=== PATIENT | female | born 1970 | race Caucasian/White ===

== ENCOUNTER 2020-07-31 09:49 | Outpatient (REF) | payer MEDICARE, MEDICAID, SELFPAY ==
--- NOTE | 2020-07-31 10:09 | XR_ITS ---
EXAMINATION: X-RAY BILATERAL KNEES CLINICAL INFORMATION: Pain COMPARISON: None TECHNIQUE: AP bilateral knees one view. Left knee 2 views. Right knee 2 views. FINDINGS: Left knee: Normal alignment. Joint spaces are maintained. No fracture or dislocation. No effusion. Right knee: Normal alignment. Medial and lateral compartment joint spaces are maintained. Marginal patellar spurring, with the question mild lateral compartment joint space narrowing. No acute fracture or dislocation. Small suprapatellar joint fluid. Dystrophic calcifications in the soft tissue. XR/XR knee RT 2V IMPRESSION: Mild patellofemoral compartment arthritis right knee. Small suprapatellar joint fluid. No acute osseous abnormality. No significant osseous abnormality left knee.
--- NOTE | 2020-07-31 10:09 | XR_ITS ---
EXAMINATION: X-RAY BILATERAL KNEES CLINICAL INFORMATION: Pain COMPARISON: None TECHNIQUE: AP bilateral knees one view. Left knee 2 views. Right knee 2 views. FINDINGS: Left knee: Normal alignment. Joint spaces are maintained. No fracture or dislocation. No effusion. Right knee: Normal alignment. Medial and lateral compartment joint spaces are maintained. Marginal patellar spurring, with the question mild lateral compartment joint space narrowing. No acute fracture or dislocation. Small suprapatellar joint fluid. Dystrophic calcifications in the soft tissue. XR/XR knee LT 2V IMPRESSION: Mild patellofemoral compartment arthritis right knee. Small suprapatellar joint fluid. No acute osseous abnormality. No significant osseous abnormality left knee.
--- NOTE | 2020-07-31 10:09 | XR_ITS ---
EXAMINATION: X-RAY BILATERAL KNEES CLINICAL INFORMATION: Pain COMPARISON: None TECHNIQUE: AP bilateral knees one view. Left knee 2 views. Right knee 2 views. FINDINGS: Left knee: Normal alignment. Joint spaces are maintained. No fracture or dislocation. No effusion. Right knee: Normal alignment. Medial and lateral compartment joint spaces are maintained. Marginal patellar spurring, with the question mild lateral compartment joint space narrowing. No acute fracture or dislocation. Small suprapatellar joint fluid. Dystrophic calcifications in the soft tissue. XR/XR knee standing BI IMPRESSION: Mild patellofemoral compartment arthritis right knee. Small suprapatellar joint fluid. No acute osseous abnormality. No significant osseous abnormality left knee.
== END 2020-07-31 09:50 | disposition home or self-care (01) ==
LOC: HO.HOSX 09:49
PROVIDERS: PCP Internal Medicine; Visit Provider Physician Assistant
DX: M25.561 Pain in right knee (principal); M25.562 Pain in left knee; M22.2X1 Patellofemoral disorders, right knee; M22.2X2 Patellofemoral disorders, left knee
CPT/HCPCS: 73560; 73565; 99212

== ENCOUNTER 2020-08-05 12:14 | Outpatient (REF) | payer MEDICARE, MEDICAID, SELFPAY ==
[2020-08-05 13:11] LABS: MANUAL DIFF FLAG NO
[2020-08-05 13:23] LABS: Basophils Percent Auto 0.5 % (0-2); Eosinophils Absolute Auto 0.3 X10*3/uL (0.0-0.4); Hematocrit 34.3 % (37-47); Imm Gran Abs Auto 0.01 X10*3/uL (0.00-0.03); Imm Gran Pct Auto 0.2 % (0.0-0.4); Lymphocytes Absolute Auto 1.3 X10*3/uL (1.2-4.9); Lymphocytes Percent Auto 20.2 % (20-40); Mean Corpuscular HGB Conc 32.1 g/dl (31.0-35.0); Mean Corpuscular Hemoglobin 29.2 pg (27.0-33.0); Mean Platelet Volume 9.6 fL (9.4-12.3); Monocytes Absolute Auto 0.5 X10*3/uL (0.1-1.2); Monocytes Percent Auto 7.3 % (2-11); Neutrophils Absolute Auto 4.2 X10*3/uL (2.0-8.3); Neutrophils Percent Auto 66.8 % (45-73); Platelet Count 347 X10*3/uL (160-400); Red Blood Count 3.77 X10*6/uL (4.20-5.50); Red Cell Distribution Width 15.9 % (11.0-16.0); White Blood Count 6.2 X10*3/uL (4.8-10.8)
[2020-08-05 13:32] LABS: B Type Natriuretic Peptide 33 pg/mL (<100)
[2020-08-05 13:58] LABS: Estimated Average Glucose 114 mg/dL; Hemoglobin A1c % 5.6 %; Vitamin D 25-OH Total 25.3 ng/mL (>30)
[2020-08-05 14:02] LABS: Alanine Aminotransferase 19 U/L (0-31); Alkaline Phosphatase 55 U/L (39-117); Anion Gap 14 (12-20); Aspartate Amino Transferase 19 U/L (5-31); Bilirubin Total 0.4 mg/dL (0.0-1.0); Blood Urea Nitrogen 6 mg/dL (9-16); Calcium 8.5 mg/dL (8.4-10.2); Carbon Dioxide 26 mmol/L (22-29); Chloride 102 mmol/L (96-108); Cholesterol 144 mg/dL; Estimated Glomerular Filt Rate > 60; Glucose Fasting 96 mg/dL (60-99); HDL Cholesterol 42 mg/dL; LDL Cholesterol Calculated 74 mg/dl; Potassium 4.8 mmol/l (3.3-5.1); Sodium 137 mmol/L (135-145); Total Protein 6.6 g/dL (6.5-8.0); Triglycerides 142 mg/dL
[2020-08-05 14:35] LABS: Folate 6.7 ng/mL (> or = 4.0); Vitamin B12 229 pg/mL (200-900)
[2020-08-05 14:46] LABS: Erythrocyte Sedimentation Rate 13 MM/HR (0-20)
== END 2020-08-05 12:15 | disposition home or self-care (01) ==
LOC: HO.LAB 12:14
PROVIDERS: PCP Internal Medicine; Visit Provider Internal Medicine
DX: E78.5 Hyperlipidemia, unspecified (principal); R73.01 Impaired fasting glucose; I10 Essential (primary) hypertension; R74.8 Abnormal levels of other serum enzymes; R60.0 Localized edema; E53.8 Deficiency of other specified B group vitamins; J45.909 Unspecified asthma, uncomplicated; J21.9 Acute bronchiolitis, unspecified; F17.200 Nicotine dependence, unspecified, uncomplicated; E55.9 Vitamin D deficiency, unspecified
CPT/HCPCS: 36415; 80053; 80061; 82306; 82607; 82746; 83036; 83880; 85025; 85652

== ENCOUNTER → 2020-08-13 10:56 | Outpatient (BNVA) | payer MEDICARE, MEDICAID, SELFPAY | PROVIDERS: PCP Internal Medicine; Visit Provider Urology | DX: R39.15 Urgency of urination (principal); R32 Unspecified urinary incontinence | CPT/HCPCS: 99202; Q3014 ==

== ENCOUNTER 2020-09-04 22:05 | Emergency (ER) | payer MEDICARE, MEDICAID, SELFPAY ==
[2020-09-04 22:24] VITALS: BP 139/82; PULSE 77; RESP 16; TEMP 37.1; O2SAT 97; BMI 47.2
--- NOTE | 2020-09-04 22:33 | ED.LOWEXIN ---
HPI - Extremity Injury (Lower) General Chief Complaint: Extremity Injury, Lower Stated Complaint: Right foot pain Time Seen by Provider: 09/04/20 22:06 Source: patient Mode of arrival: ambulatory Limitations: no limitations History of Present Illness HPI Narrative: 50-year-old female with past medical history of obesity, bilateral lower extremity edema, GERD, osteoarthritis, hypertension, asthma, hyperlipidemia presents with 1 month of right heel pain with ulceration. States that she picks at her skin and that is how she got her ulcer, states that every time she walks she has a sharp piercing pain to the right heel. She does have multiple comorbidities for joint pain, and does occasionally take Percocet that are not prescribed to her. She does have bilateral lower extremity edema +4, this is her baseline and she does take a ?water pill? but she does not know the name of it. She does not describe this edema to be out of control, and states that this is her baseline. She does not report chest pain or pressure, palpitations, shortness of breath, fevers, chills, abdominal pain, abdominal distention, dysuria, hematuria, dizziness and or weakness. MD complaint: foot injury Onset (ago): month(s) (One) Type of Injury: unknown Place: home Severity: moderate Severity scale (1-10): 7 Relieving factors: nothing Exacerbating factors: weight bearing, movement and palpation Associated symptoms: able to partially bear weight Other symptoms: none Treatments prior to arrival: NSAIDS and other (Percocet) Related Data Home Medications Medication Instructions Recorded Confirmed albuterol sulfate 90 mcg/actuation 2 puff INHALATION QID 08/05/20 08/20/20 aerosol inhaler bupropion HCl 300 mg 24 hr tablet, 300 mg PO QAM 08/05/20 08/20/20 extended release cyanocobalamin (vitamin B-12) 1,000 mcg IM .Qmonth ml 08/05/20 08/20/20 1,000 mcg/mL injection solution cyclobenzaprine 10 mg tablet 10 mg PO TID 08/05/20 08/20/20 fexofenadine 180 mg tablet 180 mg PO DAILY 08/05/20 08/20/20 fluticasone propionate 220 1 puff INHALATION BID 08/05/20 08/20/20 mcg/actuation HFA aerosol inhaler gabapentin 600 mg tablet 600 mg PO BID 08/05/20 08/20/20 omeprazole 20 mg capsule,delayed 20 mg PO DAILY 08/05/20 08/20/20 release paroxetine HCl 10 mg tablet 10 mg PO DAILY 08/05/20 08/20/20 simvastatin 20 mg tablet 20 mg PO QPM 08/05/20 08/20/20 Previous Rx's Medication Instructions Recorded ibuprofen 800 mg tablet 800 mg PO TID PRN #270 tab 07/20/20 furosemide 20 mg tablet 20 mg PO DAILY #60 tab 07/30/20 mirtazapine 7.5 mg tablet 7.5 mg PO BEDTIME #90 tab 07/30/20 humidifiers #1 ea 08/05/20 mirtazapine 15 mg tablet 15 mg PO BEDTIME 30 Days #30 tab 08/05/20 simvastatin 20 mg tablet 20 mg PO BEDTIME 30 Days #30 tab 08/05/20 leg brace #1 ea 08/12/20 acetaminophen 325 mg capsule 650 mg PO Q6H PRN #300 cap 08/13/20 cyanocobalamin (vitamin B-12) 100 100 mcg PO DAILY #90 tab 08/13/20 mcg tablet oxybutynin chloride 10 mg 10 mg PO DAILY 60 Days #60 tab 08/13/20 tablet,extended release 24 hr leg brace #1 ea 08/27/20 lidocaine-prilocaine 2.5 %-2.5 % 0 - 3 g TOPICAL TID-QID #360 g 08/31/20 topical cream sennosides 8.6 mg tablet 17.2 mg PO BEDTIME PRN #60 tab 08/31/20 Allergies Allergy/AdvReac Type Severity Reaction Status Date / Time amlodipine Allergy Unknown unknown Verified 08/05/20 13:03 atorvastatin AdvReac Mild cannot Verified 08/05/20 13:03 smell or taste anything while on Rx lisinopril AdvReac Mild cough,hours Verified 08/05/20 13:03 eness Review of Systems Review of Systems: Constitutional: No Fever, No Chills ENT/Mouth: No Ear Pain, No Hoarseness, No sore throat Eyes: No Eye Pain, No Swelling, No Redness, No Foreign Body Cardiovascular: No Chest Pain, No SOB Respiratory: No Cough, No Dyspnea Gastrointestinal: No Nausea, No Vomiting, No Diarrhea, No abdominal Pain Genitourinary: No Dysuria, No Hematuria Musculoskeletal: positive right heel pain, No Myalgias, No Joint Swelling Skin: Positive ulceration to the right heel, No Skin lacerations, No rash Neuro: No Weakness, No Numbness, No Paresthesias, No Loss of Consciousness, No Dizziness, No Headache Psych: No Anxiety/Panic, No Depression Heme/Lymph: no easy bruising, no Lymphadenopathy Endocrine: No Polyuria, No Polydipsia Yes all other systems are reviewed and are negative [facility] Past Medical History Attestation statement: The following information was validated with the patient. Medical History Allergic rhinitis Anxiety Asthma Benign essential hypertension Bilateral lower extremity edema DDD (degenerative disc disease) Depression Elevated LFTs GERD without esophagitis Impaired fasting glucose Insomnia Lumbar degenerative disc disease Morbid obesity with BMI of 45.0-49.9, adult Osteoarthritis of multiple joints PTSD (post-traumatic stress disorder) Pure hypercholesterolemia Smoker Urinary incontinence Vitamin B12 deficiency Surgical History History of hip replacement, total Family History Family History Father Cancer Mother Medical history unknown Social History Social History Smoking Status: Current every day smoker Tobacco Type: Cigarette Packs Per Day: 0.5 Cigarettes Per Day: 10.0 Use of substances other than those prescribed or required for medical reasons: No Advance Directives: No Advance Directives Information Provided: Yes Physical Exam Vital Signs: Vital Signs: Last Vital Signs Temp 98.7 F 09/04/20 22:24 Pulse 77 09/04/20 22:24 Resp 16 09/04/20 22:24 BP 139/82 09/04/20 22:24 Pulse Ox 97 09/04/20 22:24 Body Mass Index 47.2 Appearance: Alert. Oriented X3. Moderate distress. Eyes: Pupils equal, round and reactive to light. ENT: Pharynx normal. Neck: Normal inspection. Neck supple. CVS: Normal heart rate and rhythm. Pulses normal. Respiratory: No respiratory distress. Breath sounds normal. Abdomen: Soft and nontender. Skin: Skin warm and dry. Normal skin color. Normal skin turgor. Extremities: Bilateral lower extremity edema +4, 0.5 by 0.3 mm ulceration to the right heel, no purulent drainage or erythema noted, tenderness noted to palpation to the right heel. Brisk capillary refill to bilateral lower extremities, pulses equal to all extremities. Neuro: No motor deficit. No sensory deficit. Course Course Course Narrative: 50-year-old female presents with right heel pain, has had this for approximately a month however has gotten worse or the past several days. She does have an ulceration, ulceration was caused by skin picking. She does not have any other wounds anywhere on her body, this wound has been there for approximately a month or more. There is no indication of cellulitis, we will order x-ray of the right foot and heel. As her pain management will give IM morphine and Toradol. We will update her Tdap vaccine. X-ray shows osteoarthritis, no indication of osteomyelitis. Patient was referred to Pain Management, we will not be giving her prescriptions for pain at home as she does use Percocets, Tylenol and Motrin. Patient verbalized understanding of and agrees to plan of care to discharge home. She is visibly dissatisfied with pain management suggestions. MDM - Extremity Injury (Lower) Medical Records Attestation: I reviewed the patient's medical records. Lab Data Attestation: I reviewed the patient's lab results. Imaging Data Right foot x-ray: Attestation: I personally reviewed and interpreted this imaging study as follows: Radiologist's impression: EXAMINATION: XR FOOT, RIGHT CLINICAL INFORMATION: heel pain with ulcer COMPARISON: 11/24/2019 TECHNIQUE: AP, lateral, and oblique views of the right foot. FINDINGS: Soft tissues are swollen at the hindfoot and ankle. As seen on the oblique view, there is a subtle lucency in the lateral subcutaneous fat only corresponds to the skin ulceration. No evidence of underlying osteomyelitis. There is mild multifocal osteoarthritis in the midfoot. Hallux valgus is present at the first MTP joint, relatively mild. Mild osteoarthritis is also present at the great toe interphalangeal joint and the first MTP joint. XR/XR foot RT min 3V IMPRESSION: Soft tissue ulceration at the level of the calcaneal tuberosity without radiographic evidence of underlying osteomyelitis. Multifocal osteoarthritis in the foot. Discharge Plan Discharge Clinical Impression: Inflammatory heel pain Qualifiers: Laterality: right Qualified Code(s): M79.671 - Pain in right foot Osteoarthritis Qualifiers: Osteoarthritis location: foot Osteoarthritis type: unspecified Laterality: right Qualified Code(s): M19.071 - Primary osteoarthritis, right ankle and foot Patient Disposition: Home, Self-Care Instructions: Osteoarthritis (ED), Arthralgia (ED), Metatarsalgia (DC) Additional Instructions: You were evaluated for heel pain. Please follow-up with Dr. De León painting technician. You do have osteoarthritis, as well as degenerative joint disease of multiple joints. Thank you for choosing this emergency department for evaluation. Please follow-up with primary care physician as needed. Return to the emergency department for any new, concerning, or worsening symptoms. Prescriptions: No Action ibuprofen 800 mg tablet 800 mg PO TID PRN (Reason: pain) Qty: 270 RF: 2 mirtazapine 7.5 mg tablet 7.5 mg PO BEDTIME Qty: 90 RF: 0 furosemide 20 mg tablet 20 mg PO DAILY Qty: 60 RF: 0 acetaminophen 325 mg capsule 650 mg PO Q6H PRN (Reason: fever or pain) Qty: 300 RF: 2 cyanocobalamin (vitamin B-12) 100 mcg tablet 100 mcg PO DAILY Qty: 90 RF: 2 (DME) Knee Support Brace Misc See Rx Instructions .MEDSUPPLY Qty: 1 RF: 0 sennosides [Senna Laxative] 8.6 mg tablet 17.2 mg PO BEDTIME PRN (Reason: constipation) Qty: 60 RF: 2 lidocaine-prilocaine 2.5-2.5 % cream 0 - 3 g topical TID-QID Qty: 360 RF: 2 omeprazole 20 mg capsule,delayed release(DR/EC) 20 mg PO DAILY RF: 0 Flovent HFA 220 mcg/actuation HFA aerosol inhaler 1 puff inhalation BID RF: 0 fexofenadine 180 mg tablet 180 mg PO DAILY RF: 0 albuterol sulfate [Ventolin HFA] 90 mcg/actuation HFA aerosol inhaler 2 puff inhalation QID RF: 0 gabapentin 600 mg tablet 600 mg PO BID RF: 0 (DME) humidifiers Misc See Rx Instructions .ROUTE .MEDSUPPLY Qty: 1 RF: 0 cyanocobalamin (vitamin B-12) 1,000 mcg/mL solution 1,000 mcg IM .Qmonth RF: 0 cyclobenzaprine 10 mg tablet 10 mg PO TID RF: 0 simvastatin 20 mg tablet 20 mg PO QPM RF: 0 paroxetine HCl 10 mg tablet 10 mg PO DAILY RF: 0 bupropion HCl 300 mg tablet extended release 24 hr 300 mg PO QAM RF: 0 simvastatin 20 mg tablet 20 mg PO BEDTIME 30 Days Qty: 30 RF: 3 mirtazapine 15 mg tablet 15 mg PO BEDTIME 30 Days Qty: 30 RF: 3 (DME) Knee Support Brace Misc See Rx Instructions .MEDSUPPLY Qty: 1 RF: 0 oxybutynin chloride 10 mg tablet extended release 24hr 10 mg PO DAILY 60 Days Qty: 60 RF: 0 Referrals: Ruben De León MD [Physician] - 2 days (Chronic joint pain, right heel pain)
[2020-09-04] MEDS: Morphine Sulfate 4 MG/ML CARTRIDGE IM (22:43)
[2020-09-04] MEDS: Ketorolac Tromethamine 60 MG/2 ML VIAL IM (22:48)
[2020-09-04 23:21] VITALS: BP 120/68; PULSE 93; RESP 16; O2SAT 95
== END 2020-09-05 00:06 | disposition home or self-care (01) ==
PROVIDERS: Emergency Provider Internal Medicine; PCP Internal Medicine
DX: M19.071 Primary osteoarthritis, right ankle and foot (principal); S90.811A Abrasion, right foot, initial encounter; M79.671 Pain in right foot; R60.0 Localized edema; F17.210 Nicotine dependence, cigarettes, uncomplicated; X58.XXXA Exposure to other specified factors, initial encounter; Y93.9 Activity, unspecified; Y92.9 Unspecified place or not applicable; Y99.9 Unspecified external cause status; Z23 Encounter for immunization; Z79.899 Other long term (current) drug therapy; Z71.6 Tobacco abuse counseling
CPT/HCPCS: 73630; 90471; 90715; 96372; 99284; J1885; J2270

== ENCOUNTER 2020-10-14 13:02 | Outpatient (REF) | payer OTHER, SELFPAY ==
--- NOTE | 2020-10-14 14:09 | XR_ITS ---
EXAMINATION: XR KNEE, RIGHT XR KNEE STANDING, BILATERAL XR KNEE, LEFT CLINICAL INFORMATION: Pain right knee. COMPARISON: None TECHNIQUE: AP bilateral knees standing. Two views each knee. FINDINGS: AP BILATERAL KNEE: There is mild loss of joint space in medial compartment of both knees slightly greater on the right knee with periarticular spurring. The lateral compartment joint space is maintained. No bony erosive changes, loose bodies or joint effusion seen. RIGHT KNEE: There is mild loss of patellofemoral compartment joint space with periarticular spurring. There is minimal joint effusion. No loose body seen. There are small calcifications in the subcutaneous soft tissue anterior patella likely fat necrosis. LEFT KNEE: Mild loss of patellofemoral joint space seen without any periarticular spurring. No abnormal joint effusion, loose bodies or bony erosive changes seen. Focal fat necrosis seen in the subcutaneous fat anterior patella. XR/XR knee standing BI IMPRESSION: Mild loss of medial and patellofemoral compartment joint space both knees. There is mild periarticular spurring patellofemoral compartment with small areas of fat necrosis with calcification in soft tissues anterior to the patella.
--- NOTE | 2020-10-14 14:09 | XR_ITS ---
EXAMINATION: XR KNEE, RIGHT XR KNEE STANDING, BILATERAL XR KNEE, LEFT CLINICAL INFORMATION: Pain right knee. COMPARISON: None TECHNIQUE: AP bilateral knees standing. Two views each knee. FINDINGS: AP BILATERAL KNEE: There is mild loss of joint space in medial compartment of both knees slightly greater on the right knee with periarticular spurring. The lateral compartment joint space is maintained. No bony erosive changes, loose bodies or joint effusion seen. RIGHT KNEE: There is mild loss of patellofemoral compartment joint space with periarticular spurring. There is minimal joint effusion. No loose body seen. There are small calcifications in the subcutaneous soft tissue anterior patella likely fat necrosis. LEFT KNEE: Mild loss of patellofemoral joint space seen without any periarticular spurring. No abnormal joint effusion, loose bodies or bony erosive changes seen. Focal fat necrosis seen in the subcutaneous fat anterior patella. XR/XR knee LT 2V IMPRESSION: Mild loss of medial and patellofemoral compartment joint space both knees. There is mild periarticular spurring patellofemoral compartment with small areas of fat necrosis with calcification in soft tissues anterior to the patella.
--- NOTE | 2020-10-14 14:09 | US_ITS ---
EXAMINATION: US RETROPERITONEAL COMPLETE (RENAL) CLINICAL INFORMATION: Calculus of kidney. COMPARISON: None TECHNIQUE: Real-time imaging of the kidneys and bladder. FINDINGS: RIGHT KIDNEY: 10.8 x 5.7 x 5.2 cm (SAG x AP x TRV). The kidney is normal in size, contour, and echogenicity. Renal cortical thickness is normal. No calculi or focal parenchymal lesions. No hydronephrosis. LEFT KIDNEY: 10.7 x 6.0 x 5.3 cm (SAG x AP x TRV). The kidney is normal in size, contour, and echogenicity. Renal cortical thickness is normal. No calculi or focal parenchymal lesions. No hydronephrosis. BLADDER: Well distended and normal. Bilateral ureteral jets are demonstrated. Prevoid bladder volume is 536.7 mL. Postvoid bladder volume is 12.9 mL. US/US retroperitoneal comp IMPRESSION: Unremarkable renal ultrasound. Tiny postvoid residual bladder volume.
--- NOTE | 2020-10-14 14:09 | XR_ITS ---
EXAMINATION: XR KNEE, RIGHT XR KNEE STANDING, BILATERAL XR KNEE, LEFT CLINICAL INFORMATION: Pain right knee. COMPARISON: None TECHNIQUE: AP bilateral knees standing. Two views each knee. FINDINGS: AP BILATERAL KNEE: There is mild loss of joint space in medial compartment of both knees slightly greater on the right knee with periarticular spurring. The lateral compartment joint space is maintained. No bony erosive changes, loose bodies or joint effusion seen. RIGHT KNEE: There is mild loss of patellofemoral compartment joint space with periarticular spurring. There is minimal joint effusion. No loose body seen. There are small calcifications in the subcutaneous soft tissue anterior patella likely fat necrosis. LEFT KNEE: Mild loss of patellofemoral joint space seen without any periarticular spurring. No abnormal joint effusion, loose bodies or bony erosive changes seen. Focal fat necrosis seen in the subcutaneous fat anterior patella. XR/XR knee RT 2V IMPRESSION: Mild loss of medial and patellofemoral compartment joint space both knees. There is mild periarticular spurring patellofemoral compartment with small areas of fat necrosis with calcification in soft tissues anterior to the patella.
== END 2020-10-14 13:03 | disposition home or self-care (01) ==
LOC: HO.US 13:02
PROVIDERS: PCP Internal Medicine; Visit Provider Urology
DX: M25.561 Pain in right knee (principal); M25.562 Pain in left knee; R39.12 Poor urinary stream; R32 Unspecified urinary incontinence
CPT/HCPCS: 73560; 73565; 76770

== ENCOUNTER → 2020-12-03 14:43 | Outpatient (BNVA) | payer OTHER, SELFPAY | PROVIDERS: Visit Provider Physician Assistant | DX: M22.2X1 Patellofemoral disorders, right knee (principal); M22.2X2 Patellofemoral disorders, left knee | CPT/HCPCS: 20610; J7321 ==

== ENCOUNTER → 2020-12-10 14:17 | Outpatient (BNVA) | payer OTHER, SELFPAY | PROVIDERS: Visit Provider Physician Assistant | DX: M22.2X1 Patellofemoral disorders, right knee (principal); M22.2X2 Patellofemoral disorders, left knee | CPT/HCPCS: 20610; J7321 ==

== ENCOUNTER → 2020-12-17 14:20 | Outpatient (BNVA) | payer OTHER, SELFPAY | PROVIDERS: Visit Provider Physician Assistant | DX: M22.2X1 Patellofemoral disorders, right knee (principal); M22.2X2 Patellofemoral disorders, left knee | CPT/HCPCS: 20610; J7321 ==

== ENCOUNTER → 2020-12-25 13:44 | Outpatient (BNVA) | payer OTHER, SELFPAY | PROVIDERS: Visit Provider Urology | DX: Z13.89 Encounter for screening for other disorder (principal) | CPT/HCPCS: Q3014 ==

== ENCOUNTER 2021-06-16 15:08 | Outpatient (REF) | payer OTHER, SELFPAY ==
[2021-06-16 15:55] LABS: Appearance Urine CLEAR; Color Urine YELLOW; Glucose Urine UA NEG (NEG); Leukocyte Esterase Urine NEG (NEG); Nitrite Urine NEG (NEG); Specific Gravity - Urine 1.015 (1.005-1.025); Urine Blood NEG (NEG); Urine Ketones NEG (NEG); Urine Protein NEG (NEG-TRACE)
[2021-06-16 15:55] LABS: Basophils Absolute Auto 0.1 X10*3/uL (0.0-0.2); Basophils Percent Auto 0.6 % (0-2); Eosinophils Absolute Auto 0.4 X10*3/uL (0.0-0.4); Eosinophils Percent Auto 3.6 % (0-4); Hematocrit 29.6 % (37-47); Hemoglobin 9.4 g/dl (12.0-16.0); Imm Gran Abs Auto 0.06 X10*3/uL (0.00-0.03); Imm Gran Pct Auto 0.6 % (0.0-0.4); Lymphocytes Absolute Auto 2.6 X10*3/uL (1.2-4.9); Lymphocytes Percent Auto 24.9 % (20-40); MANUAL DIFF FLAG NO; Mean Corpuscular HGB Conc 31.8 g/dl (31.0-35.0); Mean Corpuscular Hemoglobin 30.1 pg (27.0-33.0); Mean Corpuscular Volume 94.9 fL (80-98); Mean Platelet Volume 9.2 fL (9.4-12.3); Monocytes Absolute Auto 0.6 X10*3/uL (0.1-1.2); Monocytes Percent Auto 5.8 % (2-11); Neutrophils Absolute Auto 6.9 X10*3/uL (2.0-8.3); Neutrophils Percent Auto 64.5 % (45-73); Platelet Count 488 X10*3/uL (160-400); Red Blood Count 3.12 X10*6/uL (4.20-5.50); Red Cell Distribution Width 15.8 % (11.0-16.0); White Blood Count 10.6 X10*3/uL (4.8-10.8)
[2021-06-16 16:09] LABS: Estimated Average Glucose 105 mg/dL; Hemoglobin A1c % 5.3 %
[2021-06-16 16:15] LABS: Alanine Aminotransferase 17 U/L (0-31); Alkaline Phosphatase 79 U/L (39-117); Anion Gap 15 (12-20); Aspartate Amino Transferase 18 U/L (5-31); Bilirubin Total 0.2 mg/dL (0.0-1.0); Blood Urea Nitrogen 6 mg/dL (9-16); Calcium 9.5 mg/dL (8.4-10.2); Carbon Dioxide 27 mmol/L (22-29); Chloride 101 mmol/L (96-108); Cholesterol 152 mg/dL; Estimated Glomerular Filt Rate > 60; Glucose Fasting 85 mg/dL (60-99); HDL Cholesterol 34 mg/dL; LDL Cholesterol Calculated 57 mg/dl; Potassium 4.7 mmol/L (3.3-5.1); Sodium 138 mmol/L (135-145); Total Protein 6.8 g/dL (6.5-8.0); Triglycerides 306 mg/dL
[2021-06-16 16:38] LABS: TSH reflex Free T4 1.32 uIU/mL (0.32-4.0); Vitamin D 25-OH Total 29.4 ng/mL (>30)
[2021-06-16 16:45] LABS: Folate 3.3 ng/mL (> or = 4.0); Vitamin B12 297 pg/mL (200-900)
== END 2021-06-16 15:09 | disposition home or self-care (01) ==
LOC: HO.LAB 15:08
PROVIDERS: PCP Internal Medicine; Visit Provider Internal Medicine
DX: E78.00 Pure hypercholesterolemia, unspecified (principal); R32 Unspecified urinary incontinence; R60.0 Localized edema; E55.9 Vitamin D deficiency, unspecified; E11.9 Type 2 diabetes mellitus without complications; E66.01 Morbid (severe) obesity due to excess calories; Z68.42 Body mass index [BMI] 45.0-49.9, adult; E53.8 Deficiency of other specified B group vitamins; K21.9 Gastro-esophageal reflux disease without esophagitis; I10 Essential (primary) hypertension
CPT/HCPCS: 36415; 80053; 80061; 81003; 82306; 82607; 82746; 83036; 84443; 85025

== ENCOUNTER → 2021-06-30 13:17 | Outpatient (BNVA) | payer OTHER, SELFPAY | PROVIDERS: PCP Internal Medicine; Visit Provider Dietitian, Registered | DX: R73.03 Prediabetes (principal); E66.9 Obesity, unspecified | CPT/HCPCS: 97802 ==

== ENCOUNTER → 2021-08-23 13:02 | Outpatient (BNVA) | payer OTHER, SELFPAY | PROVIDERS: PCP Internal Medicine; Visit Provider Dietitian, Registered | DX: R73.01 Impaired fasting glucose (principal) | CPT/HCPCS: 97803 ==

== ENCOUNTER → 2021-09-29 13:56 | Outpatient (BNVA) | payer OTHER, SELFPAY | PROVIDERS: PCP Internal Medicine; Visit Provider Dietitian, Registered | DX: E66.01 Morbid (severe) obesity due to excess calories (principal); R73.01 Impaired fasting glucose; Z68.42 Body mass index [BMI] 45.0-49.9, adult | CPT/HCPCS: 97803 ==

== ENCOUNTER → 2021-11-26 12:39 | Outpatient (BNVA) | payer OTHER, SELFPAY | PROVIDERS: PCP Internal Medicine; Visit Provider Physician Assistant | DX: M22.2X1 Patellofemoral disorders, right knee (principal); M22.2X2 Patellofemoral disorders, left knee | CPT/HCPCS: 20610; J7321 ==

== ENCOUNTER → 2021-12-01 13:48 | Outpatient (BNVA) | payer OTHER, SELFPAY | PROVIDERS: PCP Internal Medicine; Visit Provider Dietitian, Registered | DX: R73.01 Impaired fasting glucose (principal); E66.01 Morbid (severe) obesity due to excess calories; Z68.42 Body mass index [BMI] 45.0-49.9, adult; Z71.3 Dietary counseling and surveillance | CPT/HCPCS: 97803 ==

== ENCOUNTER 2021-12-03 11:27 | Outpatient (REF) | payer OTHER, SELFPAY ==
[2021-12-03 12:23] LABS: MANUAL DIFF FLAG NO
[2021-12-03 13:25] LABS: Basophils Absolute Auto 0.1 X10*3/uL (0.0-0.2); Basophils Percent Auto 1.3 % (0-2); Eosinophils Absolute Auto 0.4 X10*3/uL (0.0-0.4); Eosinophils Percent Auto 6.9 % (0-4); Hematocrit 38.3 % (37.0-47.0); Hemoglobin 12.3 g/dl (12.0-16.0); Imm Gran Abs Auto 0.02 X10*3/uL (0.00-0.03); Imm Gran Pct Auto 0.3 % (0.0-0.4); Lymphocytes Absolute Auto 1.8 X10*3/uL (1.2-4.9); Lymphocytes Percent Auto 29.7 % (20-40); Mean Corpuscular HGB Conc 32.1 g/dl (31.0-35.0); Mean Corpuscular Hemoglobin 30.2 pg (27.0-33.0); Mean Corpuscular Volume 94.1 fL (80.0-98.0); Mean Platelet Volume 10.1 fL (9.4-12.3); Monocytes Absolute Auto 0.4 X10*3/uL (0.1-1.2); Monocytes Percent Auto 7.1 % (2-11); Neutrophils Absolute Auto 3.2 x10*3/uL (2.0-8.3); Neutrophils Percent Auto 54.7 % (45-73); Platelet Count 347 X10*3/uL (160-400); Red Blood Count 4.07 X10*6/uL (4.20-5.50); Red Cell Distribution Width 14.6 % (11.0-16.0); White Blood Count 5.9 X10*3/uL (4.8-10.8)
[2021-12-03 13:36] LABS: Estimated Average Glucose 111 mg/dL; Hemoglobin A1c % 5.5 %
[2021-12-03 13:52] LABS: Appearance Urine HAZY; Color Urine YELLOW; Glucose Urine UA NEG (NEG); Leukocyte Esterase Urine NEG (NEG); Nitrite Urine NEG (NEG); Urine Blood NEG (NEG); Urine Ketones NEG (NEG); Urine Protein NEG (NEG-TRACE)
[2021-12-03 13:55] LABS: Alanine Aminotransferase 39 U/L (0-31); Albumin Level 4.5 g/dL (3.5-5.0); Alkaline Phosphatase 68 U/L (39-117); Anion Gap 14 (12-20); Aspartate Amino Transferase 34 U/L (5-31); Bilirubin Total 0.5 mg/dL (0.0-1.0); Blood Urea Nitrogen 11 mg/dL (9-16); Calcium 10.1 mg/dL (8.4-10.2); Carbon Dioxide 30 mmol/L (22-29); Chloride 100 mmol/L (96-108); Estimated Glomerular Filt Rate > 60; Glucose Random 101 mg/dL (60-115); Potassium 5.4 mmol/L (3.3-5.1); Sodium 139 mmol/L (135-145); Total Protein 7.8 g/dL (6.5-8.0)
[2021-12-03 14:15] LABS: TSH reflex Free T4 1.31 uIU/mL (0.32-4.0); Vitamin D 25-OH Total 27.7 ng/mL (>30)
[2021-12-03 14:24] LABS: Folate 14.5 ng/mL (> or = 4.0)
[2021-12-03 15:06] LABS: Vitamin B12 431 pg/mL (200-900)
== END 2021-12-03 11:28 | disposition home or self-care (01) ==
LOC: HO.LAB 11:27
PROVIDERS: Absent Provider Nurse Practitioner Family; PCP Internal Medicine; Referring Provider Internal Medicine; Visit Provider Physician Assistant
DX: M22.2X1 Patellofemoral disorders, right knee (principal); M22.2X2 Patellofemoral disorders, left knee; R20.2 Paresthesia of skin; R20.0 Anesthesia of skin; I10 Essential (primary) hypertension; R73.01 Impaired fasting glucose; E78.00 Pure hypercholesterolemia, unspecified; E55.9 Vitamin D deficiency, unspecified
CPT/HCPCS: 20610; 36415; 80053; 81003; 82306; 82607; 82746; 83036; 84443; 85025; J7321

== ENCOUNTER → 2021-12-10 12:42 | Outpatient (BNVA) | payer OTHER, SELFPAY | PROVIDERS: PCP Internal Medicine; Visit Provider Physician Assistant | DX: M22.2X1 Patellofemoral disorders, right knee (principal); M22.2X2 Patellofemoral disorders, left knee | CPT/HCPCS: 20610; J7321 ==

== ENCOUNTER → 2022-02-08 12:55 | Outpatient (BNVA) | payer OTHER, SELFPAY | PROVIDERS: PCP Internal Medicine; Visit Provider Nurse Practitioner Family | DX: R06.83 Snoring (principal); R40.0 Somnolence; E66.01 Morbid (severe) obesity due to excess calories; Z68.43 Body mass index [BMI] 50.0-59.9, adult | CPT/HCPCS: 99202 ==

== ENCOUNTER 2022-02-28 13:40 | Outpatient (REF) | payer OTHER, SELFPAY ==
--- NOTE | ~2022-02-28 | XR_ITS ---
EXAMINATION: XR SHOULDER, RIGHT CLINICAL INFORMATION: Shoulder pain COMPARISON: None TECHNIQUE: Three views of the right shoulder. FINDINGS: The bones and soft tissues are unremarkable. No fracture. Glenohumeral and acromioclavicular alignment is anatomic with normal joint space. No abnormal soft tissue calcifications. XR/XR shoulder RT min 2V IMPRESSION: No evidence of a traumatic injury.
== END 2022-02-28 13:41 | disposition home or self-care (01) ==
LOC: HO.HMGCX 13:40
PROVIDERS: Visit Provider Physician Assistant
DX: M25.511 Pain in right shoulder (principal)
CPT/HCPCS: 73030

== ENCOUNTER → 2022-03-03 12:54 | Outpatient (REF) | payer OTHER, SELFPAY | LOC: HO.SL 12:54 | PROVIDERS: PCP Internal Medicine; Visit Provider Nurse Practitioner Family | DX: E66.01 Morbid (severe) obesity due to excess calories (principal); G47.33 Obstructive sleep apnea (adult) (pediatric); R06.83 Snoring; R40.0 Somnolence; Z68.41 Body mass index [BMI] 40.0-44.9, adult | CPT/HCPCS: 95806 ==

== ENCOUNTER → 2022-03-30 10:08 | Outpatient (BNVA) | payer OTHER, SELFPAY | PROVIDERS: PCP Internal Medicine; Visit Provider Nurse Practitioner Family | DX: E66.01 Morbid (severe) obesity due to excess calories (principal); Z68.42 Body mass index [BMI] 45.0-49.9, adult; R73.01 Impaired fasting glucose; G89.29 Other chronic pain; M25.571 Pain in right ankle and joints of right foot; M25.572 Pain in left ankle and joints of left foot; M25.561 Pain in right knee; M25.562 Pain in left knee | CPT/HCPCS: 97803; 99202 ==

== ENCOUNTER 2022-04-07 12:13 | Outpatient (REF) | payer OTHER, SELFPAY ==
--- NOTE | ~2022-04-07 | XR_ITS ---
EXAMINATION: XR ANKLE, RIGHT CLINICAL INFORMATION: Pain right ankle COMPARISON: None TECHNIQUE: AP, lateral, and mortise views of the right ankle. FINDINGS: There is moderate bimalleolar soft tissue swelling. The ankle mortise and subtalar joints are normal. There is a moderate size calcaneal heel spur. Mild dorsal intertarsal spurring is seen. No visible acute fracture or dislocation seen. XR/XR ankle RT min 3V IMPRESSION: Moderate bimalleolar soft tissue swelling. No visible acute fracture or dislocation. Degenerative arthritic changes along the dorsal mid midfoot and a moderate size calcaneal heel spur
--- NOTE | ~2022-04-07 | XR_ITS ---
EXAMINATION: XR ANKLE, LEFT CLINICAL INFORMATION: Pain in left ankle COMPARISON: None TECHNIQUE: AP, lateral, and mortise views of the left ankle. FINDINGS: There is an old healed fracture left distal fifth metatarsal. The ankle mortise is intact. Subtalar joints is reduced. There is moderate soft tissue calcification posterior to ankle joint. There is a moderate size calcaneal and small retrocalcaneal enthesophyte. No bony erosive changes seen to suspect any osteomyelitis. There is moderate bimalleolar soft tissue swelling. XR/XR ankle LT min 3V IMPRESSION: No acute fracture or dislocation. Moderate bimalleolar soft tissue swelling. Moderate soft tissue calcification posterior to the ankle joint. Healing fracture mid to distal fifth metatarsal
== END 2022-04-07 12:14 | disposition home or self-care (01) ==
LOC: HO.XRAY 12:13
PROVIDERS: PCP Internal Medicine; Visit Provider Nurse Practitioner Family
DX: M25.572 Pain in left ankle and joints of left foot (principal); M25.571 Pain in right ankle and joints of right foot
CPT/HCPCS: 73610

== ENCOUNTER 2022-04-26 13:00 | Outpatient (REF) | payer OTHER, SELFPAY ==
[2022-04-26 13:18] LABS: MANUAL DIFF FLAG NO
[2022-04-26 13:49] LABS: Basophils Absolute Auto 0.1 X10*3/uL (0.0-0.2); Basophils Percent Auto 0.9 % (0-2); Eosinophils Absolute Auto 0.4 X10*3/uL (0.0-0.4); Eosinophils Percent Auto 4.3 % (0-4); Hematocrit 35.4 % (37.0-47.0); Hemoglobin 11.4 g/dl (12.0-16.0); Imm Gran Abs Auto 0.03 X10*3/uL (0.00-0.03); Imm Gran Pct Auto 0.3 % (0.0-0.4); Lymphocytes Absolute Auto 2.2 X10*3/uL (1.2-4.9); Mean Corpuscular HGB Conc 32.2 g/dl (31.0-35.0); Mean Corpuscular Hemoglobin 28.9 pg (27.0-33.0); Mean Corpuscular Volume 89.8 fL (80.0-98.0); Mean Platelet Volume 10.2 fL (9.4-12.3); Monocytes Absolute Auto 0.6 X10*3/uL (0.1-1.2); Monocytes Percent Auto 6.2 % (2-11); Neutrophils Absolute Auto 5.8 x10*3/uL (2.0-8.3); Neutrophils Percent Auto 64.3 % (45-73); Platelet Count 403 X10*3/uL (160-400); Red Blood Count 3.94 X10*6/uL (4.20-5.50); Red Cell Distribution Width 14.8 % (11.0-16.0)
[2022-04-26 14:02] LABS: Appearance Urine CLEAR; Color Urine YELLOW; Glucose Urine UA NEG (NEG); Leukocyte Esterase Urine NEG (NEG); Nitrite Urine NEG (NEG); PH 5.5 (5.0-8.0); Specific Gravity - Urine 1.015 (1.005-1.025); Urine Blood NEG (NEG); Urine Ketones NEG (NEG); Urine Protein NEG (NEG-TRACE)
[2022-04-26 14:09] LABS: Alanine Aminotransferase 61 U/L (0-31); Albumin Level 4.6 g/dL (3.5-5.0); Alkaline Phosphatase 76 U/L (39-117); Anion Gap 16 (12-20); Aspartate Amino Transferase 28 U/L (5-31); Bilirubin Total 0.3 mg/dL (0.0-1.0); Blood Urea Nitrogen 15 mg/dL (9-16); Calcium 9.3 mg/dL (8.4-10.2); Carbon Dioxide 26 mmol/L (22-29); Chloride 100 mmol/L (96-108); Cholesterol 169 mg/dL; Estimated Glomerular Filt Rate > 60; Glucose Fasting 105 mg/dL (60-99); HDL Cholesterol 24 mg/dL; LDL Cholesterol Calculated 72 mg/dl; Potassium 3.7 mmol/L (3.3-5.1); Sodium 138 mmol/L (135-145); Total Protein 7.4 g/dL (6.5-8.0); Triglycerides 365 mg/dL
[2022-04-26 14:16] LABS: Estimated Average Glucose 114 mg/dL; Hemoglobin A1c % 5.6 %
[2022-04-26 14:31] LABS: TSH reflex Free T4 0.83 uIU/mL (0.32-4.0); Vitamin D 25-OH Total 31.8 ng/mL (>30)
[2022-04-26 14:39] LABS: Folate 9.6 ng/mL (> or = 4.0); Vitamin B12 517 pg/mL (200-900)
== END 2022-04-26 13:01 | disposition home or self-care (01) ==
LOC: HO.LAB 13:00
PROVIDERS: PCP Internal Medicine; Visit Provider Internal Medicine
DX: R32 Unspecified urinary incontinence (principal); I10 Essential (primary) hypertension; E53.8 Deficiency of other specified B group vitamins; E78.00 Pure hypercholesterolemia, unspecified; R73.01 Impaired fasting glucose; E55.9 Vitamin D deficiency, unspecified
CPT/HCPCS: 36415; 51798; 80053; 80061; 81003; 82306; 82607; 82746; 83036; 84443; 85025

== ENCOUNTER 2022-04-26 13:43 | Outpatient (AMB) | payer OTHER, SELFPAY ==
--- NOTE | 2022-04-26 12:05 | A.OFFVIS_ITS ---
Intake Intake Visit Reasons: incontinence Allergies amlodipine Allergy (Unknown, Verified 06/02/23 12:42) unknown atorvastatin Adverse Reaction (Mild, Verified 06/02/23 12:42) cannot smell or taste anything while on Rx lisinopril Adverse Reaction (Mild, Verified 06/02/23 12:42) cough,hourseness HPI HPI Comments History of Present Illness Details Neile very pleasant female Telephone evaluation 15 minutes spent with consultation Has partial improvement with 10 mg oxybutynin Will increase to b.i.d. If successful will call and we will increase prescription Is aware of side effects with dry mouth and constipation Urinary incontinence They present today for - further evaluation for overactive bladder Symptoms have been present since - Ongoing. Since 2018 Current therapy includes - none Prior treatment(s) included - bladder retraining Obstetric history vaginal 2 not prolonged Current symptoms include frequency yes nocturia yes urgency yes urine loss unsensed, requiring pad use dysuria No chills No hematuria No constipation No extremity weakness No The frequency of the symptom(s) occur several times a day Associated medical conditions Alzheimer's disease No CVA No cystocele No dementia No diabetes No interstital cystitis No recurrent UTI's No spinal cord injury No Prior testing included - no prior testing. Therapeutic plan - 6m PFSH Medical History (Updated 07/24/23 @ 11:12 by Mónica Howe PA-C) Benign essential hypertension Pure hypercholesterolemia Impaired fasting glucose (~2019) GERD without esophagitis Asthma Allergic rhinitis Nicotine dependence, cigarettes, uncomplicated Mixed incontinence urge and stress Morbid obesity with BMI of 45.0-49.9, adult Lymphedema Polysubstance abuse PTSD (post-traumatic stress disorder) Major depression, recurrent, chronic Anxiety Insomnia Vitamin B12 deficiency Osteoarthritis of multiple joints Lumbar degenerative disc disease History of subdural hematoma Surgical History (Updated 07/24/23 @ 11:07 by Mónica Howe PA-C) History of colonoscopy History of bilateral hip replacements Family History Father Cancer Mother Medical history unknown Social History Household Members: Spouse Housing: Apartment Alcohol intake: current Alcohol intake frequency: holidays/special occasions only Alcohol type: beer and wine Patient Tobacco Use Status: Current everyday Tobacco user Tobacco use type: Cigarette Cigarette Packs Per Day: 1 Cigarettes Per Day: 20.0 Years Smoked: 42+ e-Cigarette/Vaping Use: Never Used Second Hand Smoke Exposure: Yes service: No Current occupational status: disabled Cognitive needs: No Hearing needs: No Vision needs: Yes (glasses) Review of Systems Const All systems reviewed & are unremarkable except as noted in HPI and below Reports no additional complaints Resp Reports no additional complaints GI Reports no additional complaints Reports as per HPI Musc Reports no additional complaints Physical Exam Telemedicine evaluation Appropriate responses Regular breathing rate and rhythm HEENT Head: Yes normal to inspection Ears: hearing grossly normal bilaterally Eyes General: appearance normal, both eyes and all related structures Neck Neck: Yes normal visual inspection Chest Chest palpation & inspection: normal inspection of the chest Resp Effort & Inspection: normal respiratory effort and able to speak in complete sentences Office Procedures Post Void Residual Post Residual Void Post Void Residual (PVR): 115 [id number]-[id number] Void Residual by ultrasound Results AMB Urinalysis, Automated UA Leukoctes 0 Graham/uL Last Edit by Roosevelt Webster on 04/26/22 14:10 UA Nitrite Negative Last Edit by Roosevelt Webster on 04/26/22 14:10 UA Urobilinogen 0.2 mg/dL Last Edit by Roosevelt Webster on 04/26/22 14:10 UA Protein 15 mg/dL Last Edit by Roosevelt Webster on 04/26/22 14:10 UA pH 6.0 Last Edit by Roosevelt Webster on 04/26/22 14:10 UA Blood 0 Sarbjit/uL Last Edit by Roosevelt Webster on 04/26/22 14:10 UA Specific [place] 1.015 Last Edit by Roosevelt Webster on 04/26/22 14:10 UA Ketone Negative Last Edit by Roosevelt Webster on 04/26/22 14:10 UA Bilirubin 0 mg/dL Last Edit by Roosevelt Webster on 04/26/22 14:10 UA Glucose 0 mg/dL Last Edit by Roosevelt Webster on 04/26/22 14:10 Results Reviewed Results Reviewed: Laboratory Last Values Urine pH (Auto) 6.0 04/26/22 13:52 Specific [place] (Auto) 1.015 04/26/22 13:52 Urine Protein (Auto) 15 mg/dL 04/26/22 13:52 Glucose (UA)(Auto) 0 mg/dL 04/26/22 13:52 Urine Ketones (Auto) Negative 04/26/22 13:52 Urine Blood (Auto) 0 Sarbjit/uL 04/26/22 13:52 Urine Nitrite (Auto) Negative 04/26/22 13:52 Urine Bilirubin (Auto) 0 mg/dL 04/26/22 13:52 Urine Urobilinogen (Auto) 0.2 mg/dL 04/26/22 13:52 Leukocyte Esterase (Auto) 0 Graham/uL 04/26/22 13:52 Assessment & Plan Assessment & Plan (1) Overactive bladder: Code(s): N32.81 - Overactive bladder Plan 6m f/u Orders: Orders AMB Post Void Residual by ultrasound 04/26/22 R32 - Unspecified urinary incontinence AMB Urinalysis Automated 04/26/22 Z13.9 - Encounter for screening, unspecified Medications: Refilled oxybutynin chloride ER 20 mg (2 x 10 mg) PO DAILY 180 tabs 1RF 90 days Patient Instructions: Imaging studies, laboratory and physical exam results were discussed and reviewed in detail. No major barriers to patient understanding were identified. An opportunity to ask questions regarding the treatment plan was provided. All questions were answered. The patient expressed understanding and agreement with the above treatment plan. The patient is aware they should contact our office by phone for worsening of their current condition or the appearance of new urologic symptoms. Compliance is encouraged with any medications and followup testing that is ordered. It is a privilege to participate in the urologic care of your patient. If you have any questions or concerns regarding treatment for the above conditions, or other urologic issues, please do not hesitate to contact me. The office telephone contact is [phone]. This note is constructed using voice recognition software. While every effort has been made to ensure accuracy etl developer errors may have been included. Yours sincerely, Dr Armen Borden MD, [facility] - Urology Providers of Expert, Compassionate Care for the Genitourinary System Telehealth Telehealth Location of provider rendering services: practice address Location of patient: address on file Patient Identification confirmed using: Name, : Yes Telehealth method: voice only Patient verbally consented to treatment: Yes Patient verbally consented to billing insurance company: Yes Patient informed of any privacy concerns related to visit: Yes Coding Level of Care Code Est Pt Level 3 (07808) Diagnoses Overactive bladder N32.81 CPT Codes Post Residual Void - PVR CPT Code: 41488-Logy Void Residual by ultrasound ([id number])
== END 2022-04-26 15:45 | disposition home or self-care (01) ==
LOC: HO.HUSH 13:43
PROVIDERS: PCP Internal Medicine; Visit Provider Urology
DX: N32.81 Overactive bladder (principal)
CPT/HCPCS: 99499

== ENCOUNTER → 2022-06-28 14:12 | Outpatient (BNVA) | payer OTHER, SELFPAY | PROVIDERS: PCP Internal Medicine; Visit Provider Nurse Practitioner Family | DX: E66.01 Morbid (severe) obesity due to excess calories (principal); G47.33 Obstructive sleep apnea (adult) (pediatric); R40.0 Somnolence; Z68.42 Body mass index [BMI] 45.0-49.9, adult | CPT/HCPCS: 99212 ==

== ENCOUNTER → 2022-07-29 09:21 | Outpatient (BNVA) | payer OTHER, SELFPAY | PROVIDERS: PCP Internal Medicine; Visit Provider Dietitian, Registered | DX: R73.01 Impaired fasting glucose (principal); E66.01 Morbid (severe) obesity due to excess calories; Z68.42 Body mass index [BMI] 45.0-49.9, adult | CPT/HCPCS: 97803 ==

== ENCOUNTER → 2022-10-20 11:11 | Outpatient (BNVA) | payer OTHER, SELFPAY | PROVIDERS: PCP Internal Medicine; Visit Provider Surgery Vascular Surgery | DX: I89.0 Lymphedema, not elsewhere classified (principal) | CPT/HCPCS: 99202 ==

== ENCOUNTER 2022-11-16 12:53 | Outpatient (REF) | payer OTHER, SELFPAY ==
[2022-11-16 13:06] LABS: MANUAL DIFF FLAG NO
[2022-11-16 14:17] LABS: Appearance Urine Clear; Color Urine Yellow; Glucose Urine UA Negative (Negative); Leukocyte Esterase Urine Negative (Negative); Nitrite Urine Negative (Negative); Specific Gravity - Urine <= 1.005 (1.005-1.025); Urine Blood Negative (Negative); Urine Ketones Negative (Negative); Urine Protein Negative (Neg-Trace)
[2022-11-16 14:56] LABS: Basophils Absolute Auto 0.1 X10*3/uL (0.0-0.2); Basophils Percent Auto 1.1 % (0-2); Eosinophils Absolute Auto 0.4 X10*3/uL (0.0-0.4); Eosinophils Percent Auto 4.3 % (0-4); Hemoglobin 12.6 g/dl (12.0-16.0); Imm Gran Abs Auto 0.04 X10*3/uL (0.00-0.03); Imm Gran Pct Auto 0.4 % (0.0-0.4); Lymphocytes Percent Auto 31.1 % (20-40); Mean Corpuscular HGB Conc 31.5 g/dl (31.0-35.0); Mean Corpuscular Hemoglobin 29.6 pg (27.0-33.0); Mean Corpuscular Volume 93.9 fL (80.0-98.0); Monocytes Absolute Auto 0.7 X10*3/uL (0.1-1.2); Monocytes Percent Auto 7.4 % (2-11); Neutrophils Absolute Auto 5.3 x10*3/uL (2.0-8.3); Neutrophils Percent Auto 55.7 % (45-73); Platelet Count 464 X10*3/uL (160-400); Red Blood Count 4.26 X10*6/uL (4.20-5.50); Red Cell Distribution Width 14.6 % (11.0-16.0); White Blood Count 9.6 X10*3/uL (4.8-10.8)
[2022-11-16 15:37] LABS: Alanine Aminotransferase 30 U/L (0-31); Albumin Level 4.6 g/dL (3.5-5.0); Alkaline Phosphatase 66 U/L (39-117); Anion Gap 16 (12-20); Aspartate Amino Transferase 27 U/L (5-31); Bilirubin Total 0.3 mg/dL (0.0-1.0); Blood Urea Nitrogen 13 mg/dL (9-16); Calcium 9.3 mg/dL (8.4-10.2); Carbon Dioxide 33 mmol/L (22-29); Chloride 100 mmol/L (96-108); Cholesterol 205 mg/dL; Estimated Glomerular Filt Rate 49; Glucose Fasting 84 mg/dL (60-99); HDL Cholesterol 41 mg/dL; LDL Cholesterol Calculated 114 mg/dl; Potassium 4.4 mmol/L (3.3-5.1); Sodium 145 mmol/L (135-145); Total Protein 7.9 g/dL (6.5-8.0); Triglycerides 250 mg/dL
[2022-11-16 15:52] LABS: TSH reflex Free T4 1.44 uIU/mL (0.32-4.0); Vitamin D 25-OH Total 29.7 ng/mL (>30)
== END 2022-11-16 12:54 | disposition home or self-care (01) ==
LOC: HO.LAB 12:53
PROVIDERS: PCP Internal Medicine; Visit Provider Internal Medicine
DX: E78.00 Pure hypercholesterolemia, unspecified (principal); E55.9 Vitamin D deficiency, unspecified; R30.0 Dysuria; I10 Essential (primary) hypertension; E66.01 Morbid (severe) obesity due to excess calories; Z68.42 Body mass index [BMI] 45.0-49.9, adult; R73.01 Impaired fasting glucose
CPT/HCPCS: 36415; 80053; 80061; 81003; 82306; 84443; 85025; 97803

== ENCOUNTER → 2022-11-22 14:51 | Outpatient (BNVA) | payer OTHER, SELFPAY | PROVIDERS: PCP Internal Medicine; Visit Provider Urology | DX: N32.81 Overactive bladder (principal) | CPT/HCPCS: Q3014 ==

== ENCOUNTER 2022-12-22 15:09 | Outpatient (REF) | payer OTHER, SELFPAY ==
[2022-12-22 17:12] LABS: Alanine Aminotransferase 36 U/L (0-31); Albumin Level 4.3 g/dL (3.5-5.0); Alkaline Phosphatase 64 U/L (39-117); Anion Gap 13 (12-20); Aspartate Amino Transferase 30 U/L (5-31); Bilirubin Total 0.3 mg/dL (0.0-1.0); Blood Urea Nitrogen 8 mg/dL (9-16); Calcium 9.5 mg/dL (8.4-10.2); Carbon Dioxide 31 mmol/L (22-29); Chloride 102 mmol/L (96-108); Estimated Glomerular Filt Rate > 60; Glucose Random 117 mg/dL (60-115); Potassium 5.1 mmol/L (3.3-5.1); Sodium 141 mmol/L (135-145)
== END 2022-12-22 15:10 | disposition home or self-care (01) ==
LOC: HO.LAB 15:09
PROVIDERS: PCP Internal Medicine; Visit Provider Internal Medicine
DX: N17.9 Acute kidney failure, unspecified (principal)
CPT/HCPCS: 36415; 80053

== ENCOUNTER → 2023-01-24 14:22 | Outpatient (BNVA) | payer OTHER, SELFPAY | PROVIDERS: PCP Internal Medicine; Visit Provider Dietitian, Registered | DX: R73.01 Impaired fasting glucose (principal); E66.01 Morbid (severe) obesity due to excess calories; Z68.42 Body mass index [BMI] 45.0-49.9, adult; Z71.3 Dietary counseling and surveillance | CPT/HCPCS: 97803 ==

== ENCOUNTER → 2023-02-16 10:44 | Outpatient (BNVA) | payer OTHER, SELFPAY | PROVIDERS: PCP Internal Medicine; Visit Provider Urology | DX: N32.81 Overactive bladder (principal) | CPT/HCPCS: Q3014 ==

== ENCOUNTER 2023-04-11 14:09 | Outpatient (AMB) | payer OTHER, SELFPAY ==
--- NOTE | 2023-04-11 14:11 | A.OFFVIS_ITS ---
Intake Intake Visit Reasons: cysto Intake Note: Patient is present for Cystoscopy Urology Med: Myrbetriq, Oxybutynin, Antibiotic Allergy: None Blood Thinner: None Disposable Cystoscope LOT: [id number] EXP:02/13/2025 Allergies amlodipine Allergy (Unknown, Verified 04/11/23 14:18) unknown atorvastatin Adverse Reaction (Mild, Verified 04/11/23 14:18) cannot smell or taste anything while on Rx lisinopril Adverse Reaction (Mild, Verified 04/11/23 14:18) cough,hourseness HPI HPI Comments History of Present Illness Details Neile very pleasant female. She is a patient of Dr. Peterson. She is seen for the following urologic conditions - urinary incontinence Cystoscopy today Medium to large capacity bladder grade 1 trabeculation Stress incontinence with urethral rotation Recommend assessment with Dr. Toledo for sling and further treatment of mixed incontinence Urinary incontinence They present today for - further evaluation for overactive bladder Symptoms have been present since - Ongoing. Since 2017 Current therapy includes - oxybutynin 20 mg Prior treatment(s) included - bladder retraining Obstetric history vaginal 2 not prolonged Current symptoms include frequency yes nocturia yes urgency yes The frequency of the symptom(s) occur several times a day with pads Associated medical conditions - none Cystoscopy - slight rectocele, stress incontinence with urethral irritation Therapeutic plan - sling assessment PFSH Medical History Allergic rhinitis Altered mental status Anxiety Asthma Benign essential hypertension Bilateral lower extremity edema DDD (degenerative disc disease) Depression Elevated LFTs GERD without esophagitis Impaired fasting glucose Insomnia Lumbar degenerative disc disease Lymphedema Major depression, recurrent, chronic Morbid obesity with BMI of 40.0-44.9, adult Morbid obesity with BMI of 45.0-49.9, adult Morbid obesity with BMI of 50.0-59.9, adult Obstructive sleep apnea Osteoarthritis of multiple joints Polysubstance abuse PTSD (post-traumatic stress disorder) Pure hypercholesterolemia Smoker Status post fall Urinary incontinence Vitamin B12 deficiency Surgical History History of hip replacement, total Family History Father Cancer Mother Medical history unknown Social History Household Members: Spouse Housing: Apartment Alcohol intake: current Alcohol intake frequency: holidays/special occasions only Alcohol type: beer and wine Tobacco use type: Cigarette Cigarette Packs Per Day: 1 Cigarettes Per Day: 20.0 e-Cigarette/Vaping Use: Never Used Second Hand Smoke Exposure: Yes service: No Current occupational status: disabled Cognitive needs: No Hearing needs: No Vision needs: Yes (glasses) Review of Systems Const Denies chills and Denies fever(s) Card Reports no additional complaints and Denies syncope Resp Denies cough GI Denies abdominal pain and Denies heartburn Reports as per HPI and Denies change in libido Neuro Denies syncope Psych Denies change in libido Endo Denies change in libido Physical Exam Const General: cooperative, healthy appearing, comfortable and no acute distress Orientation/consciousness: patient oriented x3 HEENT Face and sinus: Yes normal facial exam Mouth: moist mucous membranes Neck Neck: Yes normal visual inspection, Yes full ROM and Yes trachea midline Chest Chest palpation & inspection: normal inspection of the chest Resp Effort & Inspection: normal respiratory effort, able to speak in complete sentences and no respiratory distress GI Inspection: Yes normal to inspection Back/Spine/Pelvis Cervical Spine: normal cervical lordosis Thoracic/Lumbar Spine: thoracic and lumbar spine normal to inspection Skin General skin exam: no rashes or lesions noted Neuro General: patient oriented x3, gait normal, tone normal and moves all extremities Extrem General: Yes normal to inspection and Yes capillary refill normal Office Procedures Cystoscopy Consent Discussed risk and benefit or proposed procedure with the patient. Information consent for procedure given to the patient. Discussed technical aspects, risks, benefits and alternatives in full. Addressed all of the patient's questions and concerns regarding the procedure. The patient demonstrated knowledge and understanding. They wish to proceed with this procedure. Preparation The patient was prepped in the usual manner. A shredder/granulator operator was present and in the room. Genitalia was prepped with betadine solution in a sterile manner. Lidocaine Jelly 2% was placed into the urethra and 16Fr flexible Olympus cystoscope was inserted into the meatus after adequate lubrication. Procedure Meatus normal Urethra normal - with rotation on cough with leakage, minor rectocele Bladder examination with retroflexion of cystoscope Bladder Orifices normal shape and position Trigone normal Bladder Capacity medium Trabeculations grade 1 Cellule Formation -- Diverticulum Formation - Mucosal Erythema - Bladder Tumor - 37545-Jkkbqelfhd Procedure code (CPT) selection complete Office Meds lidocaine HCl Performing Provider: Armen Borden MD Administered by: ARBEN Samuel on 04/11/23 14:28 Dose Route Admin Location Lot Number Expiration Date ND Outsole Cementer Machine 10 mL intra-urethral nitrofurantoin monohyd/m-cryst 100 mg Performing Provider: Armen Borden MD Administered by: ARBEN Samuel on 04/11/23 14:28 Dose Route Admin Location Lot Number Expiration Date ND Outsole Cementer Machine 100 mg PO Results AMB Urinalysis, Automated UA Leukoctes 0 Graham/uL Last Edit by ARBEN Samuel on 04/11/23 14:29 UA Nitrite Negative Last Edit by [facility] on 04/11/23 14:29 UA Urobilinogen 0.2 mg/dL Last Edit by [facility] on 04/11/23 14:2 9 UA Protein 0 mg/dL Last Edit by Dee Ty Cesar on 04/11/23 14:29 UA pH 6.0 Last Edit by [facility] on 04/11/23 14:29 UA Blood 0 Sarbjit/uL Last Edit by [facility] on 04/11/23 14:29 UA Specific [place] 1.015 Last Edit by Dee Ty A on 04/11/23 14: 29 UA Ketone Negative Last Edit by [facility] on 04/11/23 14:29 UA Bilirubin 0 mg/dL Last Edit by [facility] on 04/11/23 14:29 UA Glucose 0 mg/dL Last Edit by [facility] on 04/11/23 14:29 Results Reviewed Results Reviewed: Laboratory Last Values Urine pH (Auto) 6.0 04/11/23 14:18 Specific [place] (Auto) 1.015 04/11/23 14:18 Urine Protein (Auto) 0 mg/dL 04/11/23 14:18 Glucose (UA)(Auto) 0 mg/dL 04/11/23 14:18 Urine Ketones (Auto) Negative 04/11/23 14:18 Urine Blood (Auto) 0 Sarbjit/uL 04/11/23 14:18 Urine Nitrite (Auto) Negative 04/11/23 14:18 Urine Bilirubin (Auto) 0 mg/dL 04/11/23 14:18 Urine Urobilinogen (Auto) 0.2 mg/dL 04/11/23 14:18 Leukocyte Esterase (Auto) 0 Graham/uL 04/11/23 14:18 Assessment & Plan Assessment & Plan (1) Mixed incontinence urge and stress: Code(s): N39.46 - Mixed incontinence Plan Assessment for sling Orders: Orders AMB Cystoscopy Today N32.81 - Overactive bladder AMB Urinalysis Automated Today Z13.9 - Encounter for screening, unspecified Patient Instructions: Imaging studies, laboratory and physical exam results were discussed and reviewed in detail. No major barriers to patient understanding were identified. An opportunity to ask questions regarding the treatment plan was provided. All questions were answered. The patient expressed understanding and agreement with the above treatment plan. The patient is aware they should contact our office by phone for worsening of their current condition or the appearance of new urologic symptoms. Compliance is encouraged with any medications and followup testing that is ordered. It is a privilege to participate in the urologic care of your patient. If you have any questions or concerns regarding treatment for the above conditions, or other urologic issues, please do not hesitate to contact me. The office telephone contact is [phone]. This note is constructed using voice recognition software. While every effort has been made to ensure accuracy psychology intern errors may have been included. Yours sincerely, Dr Armen Borden MD, [facility] - Urology Providers of Expert, Compassionate Care for the Genitourinary System Coding Level of Care Code Est Pt Level 3 (80322) Diagnoses Mixed incontinence urge and stress N39.46 CPT Codes Cystoscopy - CPT: 40839-Vykbvvizdd ([id number])
== END 2023-04-11 14:54 | disposition home or self-care (01) ==
PROVIDERS: Visit Provider Urology
DX: N32.81 Overactive bladder (principal); N39.46 Mixed incontinence
CPT/HCPCS: 52000

== ENCOUNTER → 2023-04-11 14:09 | Outpatient (BNVA) | payer OTHER, SELFPAY | PROVIDERS: Visit Provider Urology | DX: N39.46 Mixed incontinence (principal) | CPT/HCPCS: 52000; 81003 ==

== ENCOUNTER 2023-04-14 11:05 | Outpatient (AMB) | payer OTHER, SELFPAY ==
--- NOTE | 2023-04-14 06:58 | A.OFFVIS_ITS ---
Intake Intake Visit Reasons: follow up Intake Note: Patient presents today for a follow-up on Urinary Incontinence: Meds- Mirabegron & Oxybutynin Allergies to Antibiotic- No Known Allergies Blood Thinner- None PVR- 82 ml [employer] Required: No Accompanied by: Other Relationship Allergies amlodipine Allergy (Unknown, Verified 06/01/23 15:34) unknown atorvastatin Adverse Reaction (Mild, Verified 06/01/23 15:34) cannot smell or taste anything while on Rx lisinopril Adverse Reaction (Mild, Verified 06/01/23 15:34) cough,hourseness HPI HPI Comments History of Present Illness Details Ashley is a 53-year-old female who presents today to the office for a follow up on urinary incontinence. 04/14/2023? She has seen Dr. Borden on 04/11/2023 for mixed urinary incontinence and stress.? She has pertinent past medical history of obesity, obstructive sleep apnea. She states that she has sub-dural hematoma and had some memory issues.? She is taking Oxybutynin 20mg BID. I have discussed with her that on taking long course of Oxybutynin at high doses may cause cognitive changes in elderly, and other side effects include dry mouth and dry eyes. I have recommended her to stop taking Oxybutynin and will try Gemtesa 75mg daily. Patient states that she had some dental issues gum line and she has been prescribed with eye drops for her eyes. I discussed alternatively with her including obesity, obstructive sleep apnea; however she has mixed symptoms including urge and stress. I would like to perform urodynamic in future for further evaluation of voiding. Evaluation today UA: leucocytes: negative; blood: negative; bladder scan PVR: 82mL Plan:? Discontinue taking Oxybutynin 20mg and start taking Gemtesa 75mg daily. Ordered renal US. Consider urodynamic test in future. Follow up in 6-weeks to re-evaluate urinary symptoms. [facility] Medical History Morbid obesity with BMI of 50.0-59.9, adult Lymphedema Morbid obesity with BMI of 40.0-44.9, adult Major depression, recurrent, chronic Status post fall Altered mental status Polysubstance abuse Obstructive sleep apnea Morbid obesity with BMI of 45.0-49.9, adult Smoker Insomnia Allergic rhinitis Urinary incontinence Bilateral lower extremity edema Vitamin B12 deficiency GERD without esophagitis Osteoarthritis of multiple joints Elevated LFTs Benign essential hypertension Asthma Lumbar degenerative disc disease Impaired fasting glucose Pure hypercholesterolemia DDD (degenerative disc disease) PTSD (post-traumatic stress disorder) Depression Anxiety Surgical History History of hip replacement, total Family History Father Cancer Mother Medical history unknown Social History Household Members: Spouse Housing: Apartment Alcohol intake: current Alcohol intake frequency: holidays/special occasions only Alcohol type: beer and wine Patient Tobacco Use Status: Current everyday Tobacco user Tobacco use type: Cigarette Cigarette Packs Per Day: 1 Cigarettes Per Day: 20.0 Years Smoked: 42+ e-Cigarette/Vaping Use: Never Used Second Hand Smoke Exposure: Yes service: No Current occupational status: disabled Cognitive needs: No Hearing needs: No Vision needs: Yes (glasses) Review of Systems Const All systems reviewed & are unremarkable except as noted in HPI and below Reports no additional complaints Eyes Reports no additional complaints ENT Reports no additional complaints Card Denies dyspnea Resp Denies cough and Denies dyspnea GI Reports no additional complaints Reports no additional complaints Musc Reports no additional complaints Skin/Breast Denies rash and Denies unusual bruising Neuro Reports no additional complaints Psych Reports no additional complaints Endo Reports no additional complaints Boni/Lymph Reports no additional complaints Aller/Immun Reports no additional complaints Physical Exam Const General: cooperative, healthy appearing and no acute distress Orientation/consciousness: patient oriented x3 HEENT Head: Yes normal to inspection, Yes normocephalic and Yes atraumatic Eyes Conjunctivae: conjunctivae normal Neck Neck: Yes normal visual inspection and Yes trachea midline Chest Chest palpation & inspection: normal inspection of the chest Resp Effort & Inspection: normal respiratory effort Cardio Rate: regular rate GI Inspection: Yes normal to inspection Neuro General: patient oriented x3 Psych Appearance: grossly normal Office Procedures Post Void Residual Post Residual Void Post Void Residual (PVR): 82 [id number] Void Residual by ultrasound Results AMB Urinalysis, Automated UA Leukoctes 0 Graham/uL Last Edit by Frieda Sal Cesar on 04/14/23 11:44 UA Nitrite Negative Last Edit by Frieda Sal [facility] on 04/14/23 11:44 UA Urobilinogen 0.2 mg/dL Last Edit by Frieda Sal [facility] on 04/14/23 11:4 4 UA Protein 0 mg/dL Last Edit by Frieda Sal [facility] on 04/14/23 11:44 UA pH 6.0 Last Edit by Frieda Sal [facility] on 04/14/23 11:44 UA Blood 0 Sarbjit/uL Last Edit by Frieda Sal [facility] on 04/14/23 11:44 UA Specific [place] 1.020 Last Edit by Frieda Sal [facility] on 04/14/23 11: 44 UA Ketone Negative Last Edit by Frieda Sal [facility] on 04/14/23 11:44 UA Bilirubin 0 mg/dL Last Edit by Frieda Sal [facility] on 04/14/23 11:44 UA Glucose 0 mg/dL Last Edit by Frieda Sal [facility] on 04/14/23 11:44 Results Reviewed Results Reviewed: Laboratory Last Values Urine pH (Auto) 6.0 04/14/23 11:42 Specific [place] (Auto) 1.020 04/14/23 11:42 Urine Protein (Auto) 0 mg/dL 04/14/23 11:42 Glucose (UA)(Auto) 0 mg/dL 04/14/23 11:42 Urine Ketones (Auto) Negative 04/14/23 11:42 Urine Blood (Auto) 0 Sarbjit/uL 04/14/23 11:42 Urine Nitrite (Auto) Negative 04/14/23 11:42 Urine Bilirubin (Auto) 0 mg/dL 04/14/23 11:42 Urine Urobilinogen (Auto) 0.2 mg/dL 04/14/23 11:42 Leukocyte Esterase (Auto) 0 Graham/uL 04/14/23 11:42 Assessment & Plan Assessment & Plan (1) Mixed incontinence urge and stress: Code(s): N39.46 - Mixed incontinence (2) Morbid obesity with BMI of 50.0-59.9, adult: Code(s): E66.01 - Morbid (severe) obesity due to excess calories; Z68.43 - Body mass index [BMI] 50.0-59.9, adult (3) Overactive bladder: Code(s): N32.81 - Overactive bladder Plan Discontinue taking Oxybutynin 20mg and start taking Gemtesa 75mg daily. Ordered renal US. Consider urodynamic test in future. Follow up in 6-weeks to re-evaluate urinary symptoms. Orders: Orders AMB Urinalysis Automated 04/14/23 Z13.9 - Encounter for screening, unspecified AMB Post Void Residual by ultrasound 04/14/23 N39.8 - Other specified disorders of urinary system Medications: New vibegron (Gemtesa) 75 mg PO DAILY 90 tabs 1RF Patient Instructions: The patient had an opportunity to ask questions regarding treatment plan. All questions were answered. Imaging, Laboratory studies and physical exam results were discussed and reviewed in detail. No major barriers to understanding were identified. The patient expressed understanding and agreement with the above treatment plan. The patient is aware they should contact our office by phone for worsening of their current condition or the appearance of new symptoms. Compliance is encouraged with any medications and followup testing that is ordered. It is a privilege to be allowed the opportunity to participate in the urologic care of your patient. If you have any questions or concerns regarding treatment for the above conditions please do not hesitate to contact me. The office telephone contact is [phone]. This note is constructed in part using voice recognition software. While every effort has been made to ensure accuracy home aid errors may have been included. Yours sincerely, Ward Macias MD Coding Level of Care Code Est Pt Level 4 (39244) Diagnoses Mixed incontinence urge and stress N39.46 Morbid obesity with BMI of 50.0-59.9, adult E66.01; Z68.43 Overactive bladder N32.81 CPT Codes Post Residual Void - PVR CPT Code: 34967-Bpjv Void Residual by ultrasound ([id number])
== END 2023-04-14 12:06 | disposition home or self-care (01) ==
PROVIDERS: PCP Internal Medicine; Visit Provider Urology
DX: N39.46 Mixed incontinence (principal); E66.01 Morbid (severe) obesity due to excess calories; Z68.43 Body mass index [BMI] 50.0-59.9, adult; N32.81 Overactive bladder
CPT/HCPCS: 99214

== ENCOUNTER → 2023-04-14 11:05 | Outpatient (BNVA) | payer OTHER, SELFPAY | PROVIDERS: PCP Internal Medicine; Visit Provider Urology | DX: N39.46 Mixed incontinence (principal); N32.81 Overactive bladder; E66.01 Morbid (severe) obesity due to excess calories; Z68.43 Body mass index [BMI] 50.0-59.9, adult | CPT/HCPCS: 51798; 99212 ==

== ENCOUNTER 2023-04-18 15:46 | Outpatient (AMB) | payer OTHER, SELFPAY ==
[2023-04-18 16:04] VITALS: BP 120/70; PULSE 78; O2SAT 93; BMI 47.0
--- NOTE | 2023-04-18 16:04 | A.OFFPC_ITS ---
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 Required: No Accompanied by: Self / Same As Patient Allergies amlodipine Allergy (Unknown, Verified 04/04/24 14:37) unknown atorvastatin Adverse Reaction (Mild, Verified 04/04/24 14:37) cannot smell or taste anything while on Rx lisinopril Adverse Reaction (Mild, Verified 04/04/24 14:37) cough,hourseness Medication List - Last Reconciled 04/08/24 by Leland Peterson MD acetaminophen (Pain Relief (acetaminophen)) 650 mg (2 x 325 mg) PO Q6H PRN adhesive bandage (Bandages) one inch bandages adhesive bandage As directed adhesive tape (Micropore Surgical) As directed [adult pullups As directed] [AIR CONDITIONER UNIT As directed] albuterol sulfate 90 mcg/actuation (Ventolin HFA) 2 puffs PO QID PRN [bed tobacco flavorer As directed] blood sugar diagnostic (FreeStyle Lite Strips) As directed once a day blood-glucose meter (FreeStyle [place] Lite kit) As directed bupropion HCl XL 300 mg PO QAM cholecalciferol (vitamin D3) 25 mcg PO DAILY clonidine HCl 0.1 mg PO BEDTIME cyanocobalamin (vitamin B-12) 100 mcg PO DAILY cyclobenzaprine 10 mg PO TID PRN [ELECTRIC BLANKET As directed. Patient lives in an apartment complex but has NO control over thermostat settings - states her landlord keeps the setting LOW and it is cold all the time in her apartment] fexofenadine 180 mg PO DAILY PRN fluticasone propionate 220 mcg/actuation (Flovent HFA) 1 puff inhalation BID furosemide 40 mg PO DAILY 30 days gabapentin 800 mg PO TID gauze bandage (Band-Aid Gauze Pads) As directed [HEATING BLANKET (cerrato size dual control) As directed] heating pads Use daily as directed heating pads LARGE HEATING PADS X3 humidifiers HUMIDIFIER - use daily as directed ibuprofen 800 mg PO TID PRN ice bag (Ice It! Pack) Use daily as directed incontinence pad, liner, disp (Poise Pads) extra long incontinence pad, liner, disp (Bladder Control Pads Ex Absorb) XL [incontinence wipes As directed] lancets (FreeStyle Lancets) As directed once a day lanolin-mineral oil (Eucerin Original lotion) 1 appl topical BID-TID PRN leg brace (Knee Support Brace) Reaction knee brace XL, XXL, mahajan leg brace (Knee Support Brace) reaction brace XL/XXL gonzalez lidocaine 5% 1 patch topical DAILY lidocaine-prilocaine 2.5-2.5 % 0 - 3 grams topical TID-QID [mattress cover As directed] mirabegron ER 25 mg PO DAILY 30 days mirtazapine 45 mg PO BEDTIME miscellaneous medical supply 1 ea miscellaneous miscellaneous medical supply 1 ea miscellaneous .weekly miscellaneous medical supply 1 ea miscellaneous TID ppphaqrg-vipmjqlacWo-xofoiiylO 3.5mg-400 unit- 5,000 unit/gram (Triple Antibiotic) 1 appl topical TID nicotine (polacrilex) 2 mg buccal Q2H [NO-CRACK As directed] olopatadine 0.1% 1 drp ophthalmic (eye) BID [OMEGA XL 1 cap PO DAILY 90 days] omeprazole 20 mg PO DAILY paroxetine HCl 10 mg PO QAM paroxetine HCl 40 mg PO DAILY [sanitary napkins As directed] sennosides (Senna Laxative) 17.2 mg (2 x 8.6 mg) PO DAILY simvastatin 20 mg PO BEDTIME sodium chloride 0.9% 1 spray intranasal QID PRN [TAMAR STOCKINGS (medium compression strength) moderate compression - 20mmHg ] tramadol 50 mg PO TID PRN 30 days valsartan 160 mg PO DAILY vibegron (Gemtesa) 75 mg PO DAILY [WEDGE CUSHION for BED firm wedges if available] [wipes As directed] Tobacco use date assessed: 04/18/23 Dental Screening Dental Screen Date: 04/18/23 Did you have a dental visit in the last 12 months?: No Did you have a dental problem in the last 6 months where you did not have access to dental care?: No Was dental information given to patient?: No HPI 4 MONTH FOLLOW UP HPI Details Patient comes in today for her follow up visit States that she currently feels okay She reports that she still has occasional headaches but denies any dizziness Denies any chest pains, no increased shortness of breath No nausea / vomiting, no abdominal pain No change in bowel habits noted States that she stopped taking her Oxybutynin recently and is now on Myrbetriq ER 25 mg QD for her incontinence She was not able to get her follow up labs done prior to her visit today [facility] Medical History (Updated 04/04/24 @ 14:20 by Genevieve Zaidi PA-C) Benign essential hypertension Pure hypercholesterolemia Impaired fasting glucose (~2019) GERD without esophagitis Asthma Allergic rhinitis Nicotine dependence, cigarettes, uncomplicated Mixed incontinence urge and stress Morbid obesity with BMI of 45.0-49.9, adult Lymphedema Polysubstance abuse PTSD (post-traumatic stress disorder) Major depression, recurrent, chronic Anxiety Insomnia Vitamin B12 deficiency Osteoarthritis of multiple joints Lumbar degenerative disc disease History of subdural hematoma Surgical History History of colonoscopy History of bilateral hip replacements Family History Father Cancer Mother Medical history unknown Social History Household Members: Spouse Housing: Apartment Alcohol intake: current Alcohol intake frequency: holidays/special occasions only Alcohol type: beer and wine Patient Tobacco Use Status: Current everyday Tobacco user Tobacco use type: Cigarette Cigarette Packs Per Day: 1 Cigarettes Per Day: 20.0 Years Smoked: 42+ Packs Per Year: 0 Packs per year/per ci.00 e-Cigarette/Vaping Use: Never Used Second Hand Smoke Exposure: Yes service: No Current occupational status: disabled Cognitive needs: No Hearing needs: No Vision needs: Yes (glasses) Questionnaire PHQ-9 Over the last 2 weeks, how often have you been bothered by any of the following problems? 1. Little interest or pleasure in doing things: more than half the days 2. Feeling down, depressed, or hopeless: more than half the days 3. Trouble falling or staying asleep, or sleeping too much: more than half the days 4. Feeling tired or having little energy: more than half the days 5. Poor appetite or overeating: more than half the days 6. Feeling bad about yourself - or that you are a failure or have let yourself or your family down: more than half the days 7. Trouble concentrating on things, such as reading the newspaper or watching television: not at all 8. Moving or speaking so slowly that other people could have noticed. Or the opposite - being so fidgety or restless that you have been moving around a lot more than usual: not at all 9. Thoughts that you would be better off or of hurting yourself in some way: not at all Total score: 12 Depression Screening Interpretation: Positive Depression Screening Follow-up: Existing condition and In treatment 63987 - PHQ-9 Billing: Yes Source: Developed by Drs. Brice Samuel, Anu Lockhart, Jeremiah Angeles and colleagues, with an educational faby from [employer]. Thrive Questionnaire Date Thrive assessed: 04/18/23 I am a: Patient What is your living situation today?: I have a steady place to live Within the past 12 months, did the food you bought not last and you didn't have the money to get more?: Never true Within the past 12 months, did you worry whether your food would run out before you got money to buy more?: Never true Do you have trouble paying for medicines?: No Do you have trouble getting transportation to medical appointments?: No Do you have trouble paying your heating and electricity bill?: No Do you have trouble taking care of your child, family member or friend?: No Do you have trouble with day-to-day activities such as bathing, preparing meals, shopping, managing finances, etc.?: No Are you currently unemployed and looking for a job?: No Are you interested in more education?: No Please select the resources that you would like help with: None Currently or been in a relationship where the following occur: no concerns reported AUDIT C Alcohol Use Questionnaire (AUDIT-C) 1. How often do you have a drink containing alcohol?: Never 3. How often do you have six or more drinks on one occasion?: Never Total Score: 0 Score Reviewed/Action Taken: Yes BLAKE-7 AMB Questionnaire BLAKE-7 Date BLAKE - 7 assessed: 04/18/23 Feeling nervous, anxious, or on edge: 0 = Not at all Not being able to stop or control worryin = Not at all Worrying too much about different things: 0 = Not at all Trouble relaxin = Not at all Being so restless that it is hard to sit still: 0 = Not at all Becoming easily annoyed or irritable: 0 = Not at all Feeling afraid as if something awful might happen: 0 = Not at all Total BLAKE-7 score (0-4 normal; 5-9 mild; 10-14 moderate; 15-21 severe): 0 Source: Developed by Drs. Brice Samuel, Anu Lockhart, Jeremiah Angeles and colleagues, with an educational faby from [employer]. Review of Systems Const Denies chills, Reports fatigue, Denies fever(s) and Reports headache(s) (occasional) ENT Denies dysphagia, Denies dizziness, Denies otalgia, Reports headache(s) (occasional), Reports neck pain, Denies odynophagia and Denies sore throat Card Denies chest pain, Denies palpitations and Denies dyspnea Resp Denies chest congestion, Denies cough, Denies dyspnea and Denies wheezing GI Denies abdominal pain, Denies constipation, Denies dysphagia, Denies heartburn, Denies diarrhea, Denies nausea, Denies odynophagia and Denies vomiting Denies difficulty voiding, Denies nocturia, Denies dysuria and Denies urinary urgency Musc Reports back pain (over the lumbar spine - chronic), Reports arthralgias (over multiple joints, incl. both knees, and more recently on L shoulder) and Reports neck pain Skin/Breast Denies rash Neuro Details: (+) mild aphasia Denies dizziness, Reports headache(s) (occasional), Reports memory loss and Denies convulsions Psych Reports memory loss Endo Reports fatigue and Denies palpitations Aller/Immun Denies wheezing Physical exam (Primary Care) Vital Signs: Last Vital Signs Pulse 78 04/18/23 16:04 BP 120/70 04/18/23 16:04 Pulse Ox 93 04/18/23 16:04 Oxygen Delivery Method Room Air 04/18/23 16:04 BMI result Body Mass Index 47.0 Tobacco/Smoking Status: Tobacco use Status Tobacco use date assessed 04/18/23 04/18/23 16:07 Tobacco use type Cigarette 04/18/23 16:07 e-Cigarette/Vaping Use Never Used 04/18/23 16:07 PHQ-9: PHQ-9 Score PHQ-9: Total score 12 04/18/23 16:31 Depression Screening Interpretation: Positive Depression Screening Follow-up: Existing condition and In treatment Thrive Assessment: Date of Thrive Assessment Date Thrive assessed 04/18/23 04/18/23 16:07 Currently or been in a relationship where the following occur: no concerns reported Const General: no acute distress and alert HENMT Ears: TM's normal bilaterally and EAC's normal Throat: Yes posterior oropharynx normal and Yes tonsils normal (no TP congestion noted) Neck Neck: Yes no lymphadenopathy and Yes tender Thyroid: Thyroid normal Resp Auscultation: clear to auscultation bilaterally, no rales and no wheezes Cardio Rate: regular rate Rhythm: regular rhythm Heart sounds: no murmurs GI Palpation (GI): Soft to palpation and nontender Auscultation: normal bowel sounds General: Yes no CVA tenderness Back/Spine/Pelvis Back: no CVA tenderness Cervical Spine: Cervical spine tenderness (especially over the left side presently) Thoracic/Lumbar Spine: lumbar spinal tenderness Skin Rashes: no rashes Neuro General: no focal motor deficits Gait exam (Neuro): Assisted gait required (unsteady) Gait assisted method: walker Extrem General: Yes no clubbing, cyanosis or edema Right lower extremity: knee Details: tenderness; no swelling and ankle (ankle is everted outward at a 45 degree angle with no tenderness on exam) Details: no tenderness Left lower extremity: knee Details: tenderness; no swelling Psych Affect: Labile affect present (normal at one time, then crying and upset the next) Assessment and Plan Assessment & Plan (1) Pure hypercholesterolemia: Code(s): E78.00 - Pure hypercholesterolemia, unspecified Plan: She was not able to get her follow up labs done prior to her visit today - is instructed to get her labs done MEGAN Reinforced low cholesterol diet Continue Simvastatin 20 mg daily for now Will recheck her labs and fasting lipids in 4 months for follow up (2) Benign essential hypertension: Code(s): I10 - Essential (primary) hypertension Plan: Reinforced low-sodium diet -? goal is systolic BP of at least 120 to 130 mm or less Continue Valsartan 160 mg QD and Furosemide 20 mg QD (3) Impaired fasting glucose: Onset Date: ~2019 Comment: (FBS 105 on 04/30/2020; FBS 103 on 04/21/2023) Code(s): R73.01 - Impaired fasting glucose Plan: HgbA1c was normal at 5.6% when most recently checked in April 2022; was at 5.5% previously Reinforced low calorie diet Has been referred to and has seen a smoke tester for diet counseling and teaching - to follow up with them as scheduled (4) Asthma: Comment: (Longstanding Hx Bronchial Asthma with suspected significant degree of Restrictive Lung Disease) PLAN TO DO A COMPLETE PFT, AND THEN SEE IF WE CAN READJUST MEDICAL REGIMEN. ONCE THIS PATIENT STARTS USING CPAP REGULARLY WE NEED TO DO OVERNIGHT OXIMETRY RECORDING TO MAKE SURE THAT HER HYPOXEMIA IS CORRECTED. Code(s): J45.909 - Unspecified asthma, uncomplicated Qualifiers: Asthma severity: moderate Asthma persistence: persistent Asthma complication type: uncomplicated Qualified Code(s): J45.40 - Moderate persistent asthma, uncomplicated Plan: Continue Flovent HFA 220 mcg 1 puff twice a day and Ventolin HFA 2 puffs 4 times a day as needed Follow up with pulmonary as scheduled (5) Allergic rhinitis: Code(s): J30.9 - Allergic rhinitis, unspecified Qualifiers: Allergic rhinitis trigger: unspecified Allergic rhinitis seasonality: unspecified Qualified Code(s): J30.9 - Allergic rhinitis, unspecified Plan: Continue Fexofenadine 180 mg QD PRN and Saline nasal sprays into her nostrils PRN to help relieve her frequent nasal congestion (6) Dislocation of ankle joint: Code(s): S93.06XA - Dislocation of unspecified ankle joint, initial encounter Qualifiers: Encounter type: sequela Laterality: right Qualified Code(s): S93.04XS - Dislocation of right ankle joint, sequela Plan: Per OV report from [facility] (Dr. Dipti Mtz), patient has severe stage IV posterior tibial tendon dysfunction with severe lateral patellar subluxation /dislocation and midfoot instability Treatment options were discussed with patient including surgical correction but will likely involve a cooley talar arthrodesis as well as TMT fusion but has been advised that as long as she is actively smoking up to 1 pack of cigarettes a day, she is too high of a risk for surgery and is not considered a surgical candidate at this time She is advised to actively try to quit smoking and will only be treated conservatively at this time with ankle brace and straps Follow-up with orthopedics as scheduled (7) Patellofemoral arthralgia of both knees: Code(s): M22.2X1 - Patellofemoral disorders, right knee; M22.2X2 - Patellofemoral disorders, left knee Plan: Joint pains affect primarily her knees and hips Patient has requested for referral to [facility] for follow up of her knee and hip issues; was seen by [facility] in August 2022 and based on their OV report sent over, they saw her back then ONLY for her hips. Am not sure why there was no mention at all in their notes about her knee pain and patient is advised that she should proactively bring up her knee issues with them at her next appointment since that is where she is claiming a lot of her current pains are coming from Continue Ibuprofen 800 mg 3 times a day with food as needed and Acetaminophen 325 mg 1-2 tablets every 6 hours as needed Will also continue her on Tramadol 50 mg TID PRN (8) Lumbar degenerative disc disease: Code(s): M51.36 - Other intervertebral disc degeneration, lumbar region Plan: Reinforced activity and weight lifting restrictions to avoid aggravating her back pain Continue?Tramadol?50 mg 3 times a day as needed,?Cyclobenzaprine?10 mg 3 times a day as needed and?Gabapentin 800 mg 3 times a day Patient was being prescribed Oxycodone from the practice previously but this was discontinued a few years ago after she violated her pain management agreement (had inappropriate urine drug screen results)? Was referred to pain management last year and was also deemed to be NOT A CANDIDATE for their opioid program; is now seeing pain management only for interventional treatment - to follow up as scheduled (9) Obstructive sleep apnea: Onset Date: ~2002 Comment: (RAE dx 12/09/2002 sleep study RDI 91; last home sleep study 03/08/22 showed mild RAE with AHI 11 but hypoxia with O2 <88% whole night) SHE DOES NEED TO USE CPAP BECAUSE WITHOUT THAT SHE HAS HARD TIME TO SLEEP. I WILL HAVE MY MEDICAL ASSISTANCE RADHA CHECK HER MACHINE, AND DISCUSS WITH THE [facility]. IN THE MEANTIME I TOLD HER THAT SHE SHOULD KEEP ON USING THE CPAP EVERY NIGHT. Code(s): G47.33 - Obstructive sleep apnea (adult) (pediatric) Plan: (+) Hx of RAE States that her sleep study was last done many years ago - thinks it has been over 10 years Follow up with Sleep Medicine as scheduled (10) Polysubstance abuse: Comment: (HX opioids, intranasal heroine and ETOH abuse) Code(s): F19.10 - Other psychoactive substance abuse, uncomplicated Plan: Patient admitted to still actively snorting heroin (states that it is to help with her pain as nothing else she is being prescribed is helping) and drinking alcohol - responded promptly to Narcan administered by EMS when she was found unresponsive in her apartment by neighbors last year Has also tested positive for cocaine on UDS a few years ago when she was still receiving Rx for chronic pain meds from the office and was discharged from pain management here then Has since been following up with [facility] pain management but only for interventional procedures Was referred to Dr. 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 states they have talked with an claims support specialist at [facility] during her recent admission there last week and they are interested in looking into this and plans to contact them again MEGAN (11) GERD without esophagitis: Code(s): K21.9 - Gastro-esophageal reflux disease without esophagitis Plan: Dietary restrictions reinforced Continue Omeprazole 20 mg QD (12) Lymphedema: Code(s): I89.0 - Lymphedema, not elsewhere classified Plan: Patient is again encouraged to elevate her legs and feet as often as she can throughout the day to help manage her edema Wearing compression stockings as needed also helps Is currently receiving services from [facility] to help with her issues She was referred to and seen by vascular surgery in September 2022 but has been advised that until her orthopedic issues are properly addressed, especially those involving her right ankle, vascular intervention is inadvisable She is encouraged to follow-up with orthopedics as scheduled to get her knee and ankle issues resolved first and to contact vascular surgery again once these are completed She has also been advised by vascular surgery to take some responsibility for own health issues and to actively try to lose some weight and quit smoking (13) Vitamin B12 deficiency: Code(s): E53.8 - Deficiency of other specified B group vitamins Plan: Continue Vitamin B12 1000 mcg 1 tablet QD (14) Major depression, recurrent, chronic: Code(s): F33.9 - Major depressive disorder, recurrent, unspecified Plan: Continue Bupropion ER 300 mg once a day and Mirtazapine 45 mg once a day at bedtime Follow-up with Psychiatry as scheduled (15) Smoker: Comment: LONG-TIME HISTORY OF SMOKING, SHE SAY IS THAT SHE HAS CHANTIX AND PLANS TO START USING IT. I TOLD HER THAT BECAUSE OF OR LIFELONG SMOKING AND NOW THAT SHE IS 53 YEARS OLD, SHE SHOULD JOIN THE ANNUAL LUNG SCREENING PROGRAM. SHE IS WILLING TO DO THAT. REFERRAL IS MADE. Code(s): F17.200 - Nicotine dependence, unspecified, uncomplicated Plan: Counseled again on smoking cessation - patient continues to smoke up to 1 pack of cigarettes a day at present She is currently on Bupropion, which does not seem to have had any effect on her smoking at all Have discussed other smoking cessation aids, including nicotine patches, gum and Varenicline - patient would like to try oral Varenicline to help her quit - Rx sent Advised again that she has to want to quit smoking to be successful, and cannot just depend on the prescriptions to help her quit automatically (16) Morbid obesity with BMI of 50.0-59.9, adult: Code(s): E66.01 - Morbid (severe) obesity due to excess calories; Z68.43 - Body mass index [BMI] 50.0-59.9, adult Plan: Reinforced diet and again discussed need to lose weight; exercise is unrealistic at this point due to patient's unsteadiness, lymphedema and multiple comorbidities Patient is again lamenting the fact that she keeps being as to lose weight when she can hardly move around due to her knee and ankle issues and that no one seems to be doing anything to help her get these addressed Have reminded her of what Orthopedics have told her - that as long as she is actively smoking, they are not going to perform any surgery because of increased risks and she is advised to at least start with that Plan Follow up in 4 months Orders: Orders Lipid Panel 4 Months E78.00 - Pure hypercholesterolemia, unspecified Comprehensive [place]. Panel Fast 4 Months E78.00 - Pure hypercholesterolemia, unspecified Complete Blood Count Auto Diff 4 Months I10 - Essential (primary) hypertension TSH reflex Free T4 4 Months E78.00 - Pure hypercholesterolemia, unspecified UA CC w/rflx Micro + Cult 4 Months R30.0 - Dysuria Vitamin D 25-OH Total 4 Months E55.9 - Vitamin D deficiency, unspecified Medications: New varenicline 1 mg PO BID 56 tabs 3RF 28 days Coding Level of Care Code Est Pt Level 4 (77980) Diagnoses Pure hypercholesterolemia E78.00 Benign essential hypertension I10 Impaired fasting glucose R73.01 Moderate persistent asthma without complication J45.40 Asthma severity: moderate Asthma persistence: persistent Asthma complication type: uncomplicated Allergic rhinitis, unspecified seasonality, unspecified trigger J30.9 Allergic rhinitis trigger: unspecified Allergic rhinitis seasonality: unspecified Dislocation of right ankle joint, sequela S93.04XS Encounter type: sequela Laterality: right Patellofemoral arthralgia of both knees M22.2X1; M22.2X2 Lumbar degenerative disc disease M51.36 Obstructive sleep apnea G47.33 Polysubstance abuse F19.10 GERD without esophagitis K21.9 Lymphedema I89.0 Vitamin B12 deficiency E53.8 Major depression, recurrent, chronic F33.9 Smoker F17.200 Morbid obesity with BMI of 50.0-59.9, adult E66.01; Z68.43
== END 2023-04-18 16:40 | disposition home or self-care (01) ==
PROVIDERS: Visit Provider Internal Medicine
DX: E78.00 Pure hypercholesterolemia, unspecified (principal); I10 Essential (primary) hypertension; R73.01 Impaired fasting glucose; J45.40 Moderate persistent asthma, uncomplicated; J30.9 Allergic rhinitis, unspecified; S93.04XS Dislocation of right ankle joint, sequela; M22.2X1 Patellofemoral disorders, right knee; M22.2X2 Patellofemoral disorders, left knee; M51.36 Other intervertebral disc degeneration, lumbar region; G47.33 Obstructive sleep apnea (adult) (pediatric); F19.10 Other psychoactive substance abuse, uncomplicated; K21.9 Gastro-esophageal reflux disease without esophagitis; I89.0 Lymphedema, not elsewhere classified; E53.8 Deficiency of other specified B group vitamins; F33.9 Major depressive disorder, recurrent, unspecified; F17.200 Nicotine dependence, unspecified, uncomplicated; E66.01 Morbid (severe) obesity due to excess calories; Z68.43 Body mass index [BMI] 50.0-59.9, adult
CPT/HCPCS: 99499

== ENCOUNTER 2023-04-21 11:35 | Outpatient (REF) | payer OTHER, SELFPAY ==
[2023-04-21 11:54] LABS: MANUAL DIFF FLAG NO
[2023-04-21 12:50] LABS: Basophils Absolute Auto 0.1 X10*3/uL (0.0-0.2); Basophils Percent Auto 0.7 % (0-2); Eosinophils Absolute Auto 0.5 X10*3/uL (0.0-0.4); Eosinophils Percent Auto 6.3 % (0-4); Hemoglobin 11.6 g/dl (12.0-16.0); Imm Gran Abs Auto 0.03 X10*3/uL (0.00-0.03); Imm Gran Pct Auto 0.4 % (0.0-0.4); Lymphocytes Absolute Auto 1.9 X10*3/uL (1.2-4.9); Lymphocytes Percent Auto 25.1 % (20-40); Mean Corpuscular HGB Conc 32.2 g/dl (31.0-35.0); Mean Corpuscular Hemoglobin 29.3 pg (27.0-33.0); Mean Corpuscular Volume 90.9 fL (80.0-98.0); Mean Platelet Volume 9.7 fL (9.4-12.3); Monocytes Absolute Auto 0.6 X10*3/uL (0.1-1.2); Monocytes Percent Auto 7.4 % (2-11); Neutrophils Absolute Auto 4.5 x10*3/uL (2.0-8.3); Neutrophils Percent Auto 60.1 % (45-73); Platelet Count 439 X10*3/uL (160-400); Red Blood Count 3.96 X10*6/uL (4.20-5.50); Red Cell Distribution Width 14.9 % (11.0-16.0); White Blood Count 7.5 X10*3/uL (4.8-10.8)
[2023-04-21 12:55] LABS: Appearance Urine Clear; Color Urine Yellow; Glucose Urine UA Negative (Negative); Leukocyte Esterase Urine Negative (Negative); Nitrite Urine Negative (Negative); PH 5.5 (5.0-9.0); Urine Blood Negative (Negative); Urine Ketones Negative (Negative); Urine Protein Negative (Neg-Trace)
[2023-04-21 13:24] LABS: Alanine Aminotransferase 19 U/L (0-31); Alkaline Phosphatase 55 U/L (39-117); Anion Gap 16 (12-20); Aspartate Amino Transferase 19 U/L (5-31); Bilirubin Total 0.3 mg/dL (0.0-1.0); Blood Urea Nitrogen 7 mg/dL (9-16); Calcium 9.3 mg/dL (8.4-10.2); Carbon Dioxide 28 mmol/L (22-29); Chloride 101 mmol/L (96-108); Cholesterol 122 mg/dL; Estimated Glomerular Filt Rate > 60; Glucose Fasting 103 mg/dL (60-99); HDL Cholesterol 30 mg/dL; LDL Cholesterol Calculated 54 mg/dl; Potassium 3.1 mmol/L (3.3-5.1); Sodium 142 mmol/L (135-145); Triglycerides 192 mg/dL
[2023-04-21 13:40] LABS: TSH reflex Free T4 0.52 uIU/mL (0.32-4.0); Vitamin D 25-OH Total 39.9 ng/mL (>30)
== END 2023-04-21 11:36 | disposition home or self-care (01) ==
LOC: HO.LAB 11:35
PROVIDERS: PCP Internal Medicine; Visit Provider Internal Medicine
DX: I10 Essential (primary) hypertension (principal); E78.00 Pure hypercholesterolemia, unspecified; E55.9 Vitamin D deficiency, unspecified; R30.0 Dysuria
CPT/HCPCS: 36415; 80053; 80061; 81003; 82306; 84443; 85025

== ENCOUNTER 2023-04-26 09:28 | Outpatient (AMB) | payer OTHER, SELFPAY ==
[2023-04-26 09:42] VITALS: BMI 47.7
--- NOTE | 2023-04-26 09:42 | A.OFFVIS_ITS ---
Intake VS Expanded 04/26/23 09:42 Height 5 ft 1 in Weight 252 lb 10.396 oz BMI 47.7 Intake Visit Reasons: pre dm, obesity Allergies amlodipine Allergy (Unknown, Verified 04/18/23 16:04) unknown atorvastatin Adverse Reaction (Mild, Verified 04/18/23 16:04) cannot smell or taste anything while on Rx lisinopril Adverse Reaction (Mild, Verified 04/18/23 16:04) cough,hourseness HPI Nutrition Presentation Details Pt presents for MNT follow up for IFG . Pt reports working on reducing sodas and pastries. Pt denies vomiting/diarrhea physical activity: sedentary related to OA, uses cane to walk Reports that keeping a food record helps with meal planning. Pt brought food record from 12/2022. Pt reports typically having increased appetite at night time food frequency fruits : 1/d , 6-12 oz juices/daily vegetables : 1-2 serving/wk protein foods: poultry, beef, salami fried foods: 3 x times/wk pastries/desserts: 1-2 /d beverages: water, coffee, sprite , diet coke 64 oz /d XYP-Xhayqid-Qd.Jeor Equation Height 5 ft 1 in Weight 253 lb Resting Metabolic Rate 1702.90 Calculated Activity Level Sedentary Calories Needed to Maintain Weight 2042.48 Most Recent Diabetes Results: Cholesterol 122 mg/dL 04/21/23 HDL Cholesterol 30 mg/dL 04/21/23 Triglycerides 192 mg/dL 04/21/23 Creatinine 0.79 mg/dL (0.5-1.4) 04/21/23 Blood Urea Nitrogen 7 mg/dL (9-16) L 04/21/23 Sodium 142 mmol/L (135-145) 04/21/23 Potassium 3.1 mmol/L (3.3-5.1) L 04/21/23 Chloride 101 mmol/L (96-108) 04/21/23 Carbon Dioxide 28 mmol/L (22-29) 04/21/23 Calcium 9.3 mg/dL (8.4-10.2) 04/21/23 AST 19 U/L (5-31) 04/21/23 ALT 19 U/L (0-31) 04/21/23 Total Protein 7.0 g/dL (6.5-8.0) 04/21/23 Albumin 4.0 g/dL (3.5-5.0) 04/21/23 [facility] Medical History Allergic rhinitis Altered mental status Anxiety Asthma Benign essential hypertension Bilateral lower extremity edema DDD (degenerative disc disease) Depression Elevated LFTs GERD without esophagitis Impaired fasting glucose Insomnia Lumbar degenerative disc disease Lymphedema Major depression, recurrent, chronic Morbid obesity with BMI of 40.0-44.9, adult Morbid obesity with BMI of 45.0-49.9, adult Morbid obesity with BMI of 50.0-59.9, adult Obstructive sleep apnea Osteoarthritis of multiple joints Polysubstance abuse PTSD (post-traumatic stress disorder) Pure hypercholesterolemia Smoker Status post fall Urinary incontinence Vitamin B12 deficiency Surgical History History of hip replacement, total Family History Father Cancer Mother Medical history unknown Social History Household Members: Spouse Housing: Apartment Alcohol intake: current Alcohol intake frequency: holidays/special occasions only Alcohol type: beer and wine Tobacco use type: Cigarette Cigarette Packs Per Day: 1 Cigarettes Per Day: 20.0 e-Cigarette/Vaping Use: Never Used Second Hand Smoke Exposure: Yes service: No Current occupational status: disabled Cognitive needs: No Hearing needs: No Vision needs: Yes (glasses) Assessment & Plan Assessment & Plan (1) Morbid obesity with BMI of 45.0-49.9, adult: Code(s): E66.01 - Morbid (severe) obesity due to excess calories; Z68.42 - Body mass index [BMI] 45.0-49.9, adult Plan: Reduction of portions of empty calorie foods and and salty foods wt : 115 kg est kcal rec: 2100 Est fluid needs: 2863 ml/d (25 ml/kg bw of 114kg) Rec fiber: increase to 8-10 g per day and gradually increase to 25 g/d or as tolerated Rec Na: < 2000 mg /d Educate patient on: (R= Reviewed, V = verbalizes understanding N/R= Needs review N/A= not applicable) * Food sources of carbohydrates and serving adequate serving sizes : * Difference between complex carbohydrates and simple carbohydrates, role of fiber: R * Differences between fats (MUFA/PUFA/saturated fats, trans fats) and food sources of various fats: * Food sources of sodium and salt and healthy modifications for heart health and kidney health: R ,V * Vitamins and minerals: * How to interpret food labels: * Healthy Plate method concept: R * Physical activity: benefits and precaution: R V * reducing calories from empty calorie foods: R * mindful eating strategies: R (2) Impaired fasting glucose: Code(s): R73.01 - Impaired fasting glucose Patient Instructions: HAve 3 balanced meals per day Continue working on reducing salty foods (do not add salt to foods, choose low sodium or unsalted chips, reduce on processed meats) Remove breading from fried /breaded food item Coding Level of Care Code Nutr Indiv Subseq (46873) Diagnoses Morbid obesity with BMI of 45.0-49.9, adult E66.01; Z68.42 Impaired fasting glucose R73.01 Time Spent (min) 30
[2023-04-26 10:18] VITALS: BMI 47.8
== END 2023-04-26 10:41 | disposition home or self-care (01) ==
PROVIDERS: PCP Internal Medicine; Visit Provider Dietitian, Registered
DX: E66.01 Morbid (severe) obesity due to excess calories (principal); Z68.42 Body mass index [BMI] 45.0-49.9, adult; R73.01 Impaired fasting glucose

== ENCOUNTER → 2023-04-26 09:28 | Outpatient (BNVA) | payer OTHER, SELFPAY | PROVIDERS: PCP Internal Medicine; Visit Provider Dietitian, Registered | DX: R73.03 Prediabetes (principal); E66.01 Morbid (severe) obesity due to excess calories; Z68.42 Body mass index [BMI] 45.0-49.9, adult | CPT/HCPCS: 97803 ==

== ENCOUNTER 2023-05-31 14:43 | Outpatient (REF) | payer OTHER, SELFPAY ==
--- NOTE | ~2023-05-31 | US_ITS ---
EXAMINATION: US RETROPERITONEAL COMPLETE (RENAL) CLINICAL INFORMATION: Renal stone. COMPARISON: Renal ultrasound 10/14/2020 TECHNIQUE: Real-time imaging of the kidneys and bladder. FINDINGS: RIGHT KIDNEY: 10.8 x 5.4 x 5.9 cm (SAG x AP x TRV). The kidney is normal in size, contour, and echogenicity. Renal cortical thickness is normal. No calculi or focal parenchymal lesions. No hydronephrosis. LEFT KIDNEY: 11.3 x 5.6 x 4.2 cm (SAG x AP x TRV). The kidney is normal in size, contour, and echogenicity. Renal cortical thickness is normal. No calculi or focal parenchymal lesions. No hydronephrosis. BLADDER: Well distended and normal. Bilateral ureteral jets are not demonstrated. Prevoid bladder volume is 229 mL. Postvoid bladder volume is 2 mL. US/US retroperitoneal comp IMPRESSION: No hydronephrosis or nephrolithiasis.
== END 2023-05-31 14:44 | disposition home or self-care (01) ==
LOC: HO.HMGCX 14:43
PROVIDERS: PCP Internal Medicine; Visit Provider Urology
DX: R35.0 Frequency of micturition (principal)
CPT/HCPCS: 76770

== ENCOUNTER 2023-06-01 14:38 | Outpatient (AMB) | payer OTHER, SELFPAY ==
[2023-06-01 14:54] VITALS: PULSE 106; O2SAT 96; BMI 47.1
--- NOTE | 2023-06-01 14:54 | A.OFFVIS_ITS ---
Intake Vital Signs 06/01/23 14:54 Height 5 ft 1 in Weight 249 lb 1.957 oz BMI 47.1 Blood Pressure Location Rt brachial Position Sitting Pulse 106 H Pulse Source Pulse Oximeter Pulse Oximetry (%) 96 Oxygen Delivery Method Room Air Intake Visit Reasons: Obstructive sleep apnea Composite Bond Technician Required: No Senior Mobile Web Developer: Senior Mobile Web Developer offered & declined Accompanied by: Self / Same As Patient Allergies amlodipine Allergy (Unknown, Verified 06/01/23 15:34) unknown atorvastatin Adverse Reaction (Mild, Verified 06/01/23 15:34) cannot smell or taste anything while on Rx lisinopril Adverse Reaction (Mild, Verified 06/01/23 15:34) cough,hourseness Medication List - Last Reconciled 06/01/23 by Sherly Lyles MD acetaminophen (Pain Relief (acetaminophen)) 650 mg (2 x 325 mg) PO Q6H PRN adhesive bandage As directed adhesive tape (Micropore Surgical) As directed [adult pullups As directed] [AIR CONDITIONER UNIT As directed] albuterol sulfate 90 mcg/actuation (Ventolin HFA) 2 puffs PO QID PRN [bed meat smoker As directed] blood sugar diagnostic (FreeStyle Lite Strips) As directed once a day blood-glucose meter (FreeStyle [place] Lite kit) As directed bupropion HCl 300 mg PO QAM cholecalciferol (vitamin D3) 25 mcg PO DAILY cyanocobalamin (vitamin B-12) 100 mcg PO DAILY cyclobenzaprine 10 mg PO TID PRN [ELECTRIC BLANKET As directed. Patient lives in an apartment complex but has NO control over thermostat settings - states her landlord keeps the setting LOW and it is cold all the time in her apartment] fexofenadine 180 mg PO DAILY PRN fluticasone propionate 220 mcg/actuation (Flovent HFA) 1 puff inhalation BID furosemide 40 mg PO DAILY 30 days gabapentin 800 mg PO TID gauze bandage (Band-Aid Gauze Pads) As directed [HEATING BLANKET (cerrato size dual control) As directed] heating pads Use daily as directed heating pads LARGE HEATING PADS X3 humidifiers HUMIDIFIER - use daily as directed ibuprofen 800 mg PO TID PRN ice bag (Ice It! Pack) Use daily as directed incontinence pad, liner, disp (Poise Pads) extra long incontinence pad, liner, disp (Bladder Control Pads Ex Absorb) XL lancets (FreeStyle Lancets) As directed once a day lanolin-mineral oil (Eucerin Original lotion) 1 appl topical BID-TID PRN leg brace (Knee Support Brace) Reaction knee brace XL, XXL, mahajan leg brace (Knee Support Brace) reaction brace XL/XXL gonzalez lidocaine 5% 1 appl topical QID PRN 15 days lidocaine 5% 1 patch topical DAILY lidocaine-prilocaine 2.5-2.5 % 0 - 3 grams topical TID-QID [mattress cover As directed] mirabegron ER 25 mg PO DAILY 30 days mirtazapine 45 mg PO BEDTIME miscellaneous medical supply 1 ea miscellaneous miscellaneous medical supply 1 ea miscellaneous .weekly miscellaneous medical supply 1 ea miscellaneous TID mupirocin 2% 1 appl topical TID 7 days dmenjiiu-omzsvizqaFs-jzpboqxsK 3.5mg-400 unit- 5,000 unit/gram (Triple Antibiotic) 1 appl topical TID [NO-CRACK As directed] olopatadine 0.1% 1 drp ophthalmic (eye) BID [OMEGA XL 1 cap PO DAILY 90 days] omeprazole 20 mg PO DAILY oxybutynin chloride ER 20 mg (2 x 10 mg) PO DAILY 90 days paroxetine HCl 10 mg PO QAM sennosides (Senna Laxative) 17.2 mg (2 x 8.6 mg) PO DAILY simvastatin 20 mg PO BEDTIME sodium chloride 0.9% 1 spray intranasal QID PRN [TAMAR STOCKINGS (medium compression strength) moderate compression - 20mmHg ] tramadol 50 mg PO TID PRN 30 days valsartan 160 mg PO DAILY varenicline 1 mg PO BID 28 days vibegron (Gemtesa) 75 mg PO DAILY [WEDGE CUSHION for BED As directed] [wipes As directed] Do you need a note to return to daycare/school/sports/work: No HPI Obstructive sleep apnea HPI Details THIS 53-YEAR-OLD FEMALE WHO IS MORBIDLY OBESE, COMES HERE TODAY TO DISCUSS ABOUT MANAGEMENT OF HER SLEEP APNEA, AND ALSO ABOUT HER BREATHING PROBLEMS. SHE HAS MULTIPLE COMORBIDITIES INCLUDING BRONCHIAL ASTHMA ,LYMPHEDEMA OF THE LEGGS, DEPRESSION, CHRONIC INSOMNIA. CHRONIC OBSTRUCTIVE SLEEP APNEA DIAGNOSED ABOUT 20 YEARS AGO. DEGENERATIVE ARTHRITIS OF THE KNEES CAUSING KNEES AND LEGS PAIN. AND MAKING IT DIFFICULT FOR HER TO WALK. HER HISTORY OF OBSTRUCTIVE SLEEP APNEA GOES BACK TO ABOUT 20 YEARS AGO. SHE WAS STARTED ON CPAP THERAPY THEN, SHE USED IT FOR ABOUT 1 OR 2 YEARS THEN STOP USING IT. WHEN SHE MOVED TO A NEW PLACE SHE HAS SUMMER OTHER LOSS THE MACHINE. NOW SHE HAS HAD A RECENT HOME-BASED SLEEP STUDY, LAST YEAR, WHICH WAS POSITIVE FOR MILD DEGREE OF RAE BUT WITH LOT. OF SNORING AND ALSO NOCTURNAL HYPOXEMIA SO SHE WAS STARTED ON THE CPAP THERAPY BY THE SLEEP MEDICINE SERVICE. ACCORDING TO THE PATIENT THE INITIAL CPAP MACHINE WAS NOT TO TRANSMITTING HER COMPLIANCE DATA. SO SHE HAD THE 2ND CPAP MACHINE. RIGHT NOW SHE IS UNDER NOTICE TO RETURNED THE MACHINE BECAUSE OF NONCOMPLIANCE. THE PATIENT SAYS THAT SHE CANNOT GO WITHOUT USING THE CPAP. SHE CLAIMS THAT SHE IS USING IT EVERY NIGHT REGULARLY EXCEPT FOR THE PAST WEEK OR SO. SHE BLAMES ON THE TECHNICAL ISSUES AND THAT THE CURRENT THE MACHINE IS NOT TRANSMITTING THE DATA. SHE HAS COME TO DISCUSS WITH ME , ABOUT WHAT TO DO WITH THE CPAP MACHINE AND HOW SHE CAN AVOID RETURNING THE MACHINE. SHE IS MORBIDLY OBESE, DEFINITELY A STRONG CASE FOR RAE, SHE HAS SYMPTOMS OF EXCESSIVE SNORING AT NIGHT AND FREQUENTLY AWAKENING IF SHE IS NOT USING THE CPAP. SHE WILL REMAINS SLEEPY AND TIRED DURING THE DAYTIME. WITH THE USE OF CPAP WITH A FULLFACE MASK WHICH SHE SLEEPS BETTER AND HER DAYTIME SLEEPINESS IS MUCH LESS. HE ALSO HAS CHRONIC BRONCHIAL ASTHMA LIKE SYMPTOMS, USING FLOVENT-TO 20 1 PUFF B.I.D. AND ALBUTEROL HFA Q 6 HOURS P.R.N.. SHE SAY IS THAT SHE HAS SHE HAD A PULMONARY FUNCTION TEST BUT MANY MANY YEARS AGO, NOT IN THE RECENT 5-6 YEARS. SHE HAS NOT BEEN DIAGNOSED TO HAVE COPD . BUT SHE DOES GET SHORT OF BREATH ON [id number] EXERTION, WHICH MAY GO ALONG WITH HER EXCESSIVE WEIGHT. SHE HAS CHRONIC STASIS EDEMA OF THE LEGS RELATED TO MORBID OBESITY, IT IS CONTROLLED WITH DIURETIC PILLS. SHOULD BE NOTED THAT SHE HAS BEEN A LONG-TIME SMOKER, SINCE HER TEENAGE. ON AN AVERAGE 1 PACK OF CIGARETTES A DAY. SHE HAS CHANTIX PROBABLY PRESCRIBED BY HER PCP. AND PLANS TO START USING CHANTIX TO CUT DOWN ON SMOKING. I DID DISCUSS WITH HER THE NEED TO JOIN THE ANNUAL LUNG SCREENING PROGRAM. [facility] Medical History Morbid obesity with BMI of 50.0-59.9, adult Lymphedema Morbid obesity with BMI of 40.0-44.9, adult Major depression, recurrent, chronic Status post fall Altered mental status Polysubstance abuse Obstructive sleep apnea Morbid obesity with BMI of 45.0-49.9, adult Smoker Insomnia Allergic rhinitis Urinary incontinence Bilateral lower extremity edema Vitamin B12 deficiency GERD without esophagitis Osteoarthritis of multiple joints Elevated LFTs Benign essential hypertension Asthma Lumbar degenerative disc disease Impaired fasting glucose Pure hypercholesterolemia DDD (degenerative disc disease) PTSD (post-traumatic stress disorder) Depression Anxiety Surgical History History of hip replacement, total Family History Father Cancer Mother Medical history unknown Social History Household Members: Spouse Housing: Apartment Alcohol intake: current Alcohol intake frequency: holidays/special occasions only Alcohol type: beer and wine Patient Tobacco Use Status: Current everyday Tobacco user Tobacco use type: Cigarette Cigarette Packs Per Day: 1 Cigarettes Per Day: 20.0 Years Smoked: 42+ e-Cigarette/Vaping Use: Never Used Second Hand Smoke Exposure: Yes service: No Current occupational status: disabled Cognitive needs: No Hearing needs: No Vision needs: Yes (glasses) Review of Systems Const All systems reviewed & are unremarkable except as noted in HPI and below Eyes Reports no additional complaints ENT Reports no additional complaints Card Denies chest pain, Denies irregular heart rhythm and Reports leg edema (CHRONIC STASIS EDEMA) Resp Reports as per HPI GI Reports no additional complaints Reports nocturia Musc Reports myalgias, Reports arthralgias and Reports muscle weakness Skin/Breast Reports system reviewed and no additional complaints, except as documented Neuro Reports no additional complaints Psych Reports anxiety and Reports depression Endo Reports other (BEING TREATED FOR DIABETES) Physical Exam Vital Signs: Last Vital Signs Pulse 106 H 06/01/23 14:54 Pulse Ox 96 06/01/23 14:54 Oxygen Delivery Method Room Air 06/01/23 14:54 BMI result Body Mass Index 47.1 THIS PATIENT IS MORBIDLY OBESE, HAS A ROUND FACE. Const General: comfortable, no acute distress, alert and awake Orientation/consciousness: patient oriented x3 HEENT Head: Yes normal to inspection General nose exam: No nasal polyps present and No nasal discharge present Face and sinus: Yes sinuses nontender Mouth: oropharynx abnormals (OROPHARYNX IS NARROW, MALLAMPATI CLASS 4) Throat: Yes posterior oropharynx normal Eyes General: appearance normal, both eyes and all related structures Neck Neck: Yes normal visual inspection, Yes no lymphadenopathy, Yes trachea midline and Yes no JVD Thyroid: Thyroid normal Chest Chest palpation & inspection: normal inspection of the chest, normal palpation of entire chest wall and no tenderness Resp Other: PERCUSSION NOTE NOT PERCEPTIBLE BECAUSE OF THICK CHEST WALL. BREATH SOUNDS ARE DISTANT WITH PROLONGED EXPIRATORY PHASE. NO WHEEZES OR RHONCHI ARE HEARD. Cardio Palpation: normal PMI Rate: regular rate Rhythm: regular rhythm Heart sounds: no gallops and Murmur heart sound present (GRADE 1/6 SYSTOLIC MURMUR HEARD ALONG THE LEFT STERNAL BORDER) GI Palpation (GI): Soft to palpation, nontender, No hepatosplenomegaly present, no masses and Other GI palpation findings present (ABDOMEN IS GROSSLY OBESE AND PROTUBERANT) Auscultation: normal bowel sounds Back/Spine/Pelvis Thoracic/Lumbar Spine: thoracic and lumbar spine normal to inspection and thoraco-lumbar ROM limited Skin General skin exam: no rashes or lesions noted Neuro General: patient oriented x3, No gait normal (GAIT IS SLIGHTLY IMPAIRED, SHE HAS TO USE A CANE) and no focal motor deficits Cranial nerves: Yes CN's II-XII intact bilaterally Extrem General: Yes normal to inspection, Yes no clubbing, cyanosis or edema, Yes no calf tenderness and Yes venous stasis dermatitis (OF THE LEGS) Psych Appearance: grossly normal Speech and movement: Normal speech and movement present Assessment & Plan Assessment & Plan (1) Morbid obesity with BMI of 40.0-44.9, adult: Comment: PATIENT IS MORBIDLY OBESE. SHE IS NOT ABLE TO WALK FAST OR DO ANY EXERCISE. DISCUSS ABOUT DIET AND SHE SHOULD ACTUALLY BE SEEING A DIETITIAN. Code(s): E66.01 - Morbid (severe) obesity due to excess calories; Z68.41 - Body mass index [BMI] 40.0-44.9, adult (2) Obstructive sleep apnea: Comment: KNOWN CASE OF OBSTRUCTIVE SLEEP APNEA FOR THE PAST 20-22 YEARS. HAS BEEN USING CPAP. LAST HOME-BASED SLEEP STUDY 03/08/2022, SHOWING MILD RAE WITH TOTAL SLEEP TIME AHI 11, BUT HYPOXEMIA DURING THE WHOLE NIGHT WITH O2 SAT BELOW 88% PATIENT HAS ISSUES WITH THESE CPAP DEVICE. SHE CLAIMS THAT SHE HAS BEEN USING IT REGULARLY BUT THE MACHINE IS NOT TRANSM ITTING THE DATA. SHE HAS SECONDS CPAP DEVICE AT THIS TIME WITH THE SAME COMPLAINT. I THINK SHE HE PROBABLY HAS SOME TECHNICAL DIFFICULTY. WILL CALL DME SUPPLIER AND DISCUSSED WITH. SHE DOES NEED TO USE CPAP BECAUSE WITHOUT THAT SHE HAS HARD TIME TO SLEEP. I WILL HAVE MY MEDICAL ASSISTANCE RADHA CHECK HER MACHINE, AND DISCUSS WITH THE DME, [facility]. IN THE MEANTIME I TOLD HER THAT SHE SHOULD KEEP ON USING THE CPAP EVERY NIGHT. Code(s): G47.33 - Obstructive sleep apnea (adult) (pediatric) (3) Smoker: Comment: LONG-TIME HISTORY OF SMOKING, SHE SAY IS THAT SHE HAS CHANTIX AND PLANS TO START USING IT. I TOLD HER THAT BECAUSE OF OR LIFELONG SMOKING AND NOW THAT SHE IS 53 YEARS OLD, SHE SHOULD JOIN THE ANNUAL LUNG SCREENING PROGRAM. SHE IS WILLING TO DO THAT. REFERRAL IS MADE. Code(s): F17.200 - Nicotine dependence, unspecified, uncomplicated (4) Asthma: Comment: SHE HAS LONG-STANDING HISTORY OF BRONCHIAL ASTHMA. HOWEVER I SUSPECT THAT SHE HAS VERY SAYS SIGNIFICANT DEGREE OF RESTRICTIVE PULMONARY DISORDER. PLAN IS TO DO A COMPLETE PULMONARY FUNCTION TEST, AND THEN SEE IF WE CAN READJUST MEDICAL REGIMEN. ONCE THIS PATIENT STARTS USING CPAP REGULARLY WE NEED TO DO OVERNIGHT OXIMETRY RECORDING TO MAKE SURE THAT HER HYPOXEMIA IS CORRECTED. Code(s): J45.909 - Unspecified asthma, uncomplicated Qualifiers: Asthma severity: moderate Asthma persistence: persistent Asthma complication type: uncomplicated Qualified Code(s): J45.40 - Moderate persistent asthma, uncomplicated Orders: Orders PFT pulmonary function test Today E66.01 - Morbid (severe) obesity due to excess calories, F17.200 - Nicotine dependence, unspecified, uncomplicated, G47.33 - Obstructive sleep apnea (adult) (pediatric), J45.909 - Unspecified asthma, uncomplicated, Z68.41 - Body mass index [BMI] 40.0-44.9, adult Referrals Thoracic Surgery Referral F17.200 - Nicotine dependence, unspecified, uncomplicated Coding Level of Care Code New Pt Level 4 (43241) Diagnoses Morbid obesity with BMI of 40.0-44.9, adult E66.01; Z68.41 Obstructive sleep apnea G47.33 Smoker F17.200 Moderate persistent asthma without complication J45.40 Asthma severity: moderate Asthma persistence: persistent Asthma complication type: uncomplicated
== END 2023-06-01 15:32 | disposition home or self-care (01) ==
PROVIDERS: PCP Internal Medicine; Visit Provider Internal Medicine
DX: E66.01 Morbid (severe) obesity due to excess calories (principal); Z68.41 Body mass index [BMI] 40.0-44.9, adult; G47.33 Obstructive sleep apnea (adult) (pediatric); F17.200 Nicotine dependence, unspecified, uncomplicated; J45.40 Moderate persistent asthma, uncomplicated
CPT/HCPCS: 99204

== ENCOUNTER → 2023-06-01 14:38 | Outpatient (BNVA) | payer OTHER, SELFPAY | PROVIDERS: PCP Internal Medicine; Visit Provider Internal Medicine | DX: G47.33 Obstructive sleep apnea (adult) (pediatric) (principal); J45.40 Moderate persistent asthma, uncomplicated; F17.210 Nicotine dependence, cigarettes, uncomplicated; E66.01 Morbid (severe) obesity due to excess calories; Z68.42 Body mass index [BMI] 45.0-49.9, adult | CPT/HCPCS: 99202 ==

== ENCOUNTER → 2023-06-02 12:41 | Outpatient (AMB) | payer OTHER, SELFPAY ==
--- NOTE | 2023-06-02 12:42 | A.OFFVIS_ITS ---
Intake Intake Visit Reasons: follow up/US Intake Note: Patient presents today for a follow-up on Urinary Incontinence/US Results: US on 05/30/2023 Meds- Mirabegron Allergies to Antibiotic- No Known Allergies Blood Thinner- None Rda Required: No Accompanied by: Self / Same As Patient Allergies amlodipine Allergy (Unknown, Verified 06/02/23 12:42) unknown atorvastatin Adverse Reaction (Mild, Verified 06/02/23 12:42) cannot smell or taste anything while on Rx lisinopril Adverse Reaction (Mild, Verified 06/02/23 12:42) cough,hourseness HPI HPI Comments History of Present Illness Details Ashley is a 53-year-old female who presents today via Tele-health for a follow-up. 06/02/2023? She is followed today via Tele-health for urinary incontinence. She was last seen by me on 04/14/2023 for a follow-up on mixed urinary i ncontinence. She was advised to discontinue taking Oxybutynin 20mg and start taking Gemtesa 75mg daily at that time. Renal US was ordered and discussed I would consider urodynamic test in future pending persistent symptoms. I have reviewed the retroperitoneum US results from 05/31/2023 revealed no hydronephrosis or nephrolithiasis. She has been taking Gemtesa 75 mg daily with significant improvement in urinary symptoms, she denies urinary leakage states less urinary frequency. Review of charts: Last visit: ? 04/14/2023? She has seen Dr. Borden on 04/11/2023 for mixed urinary incontinence and stress.? She has pertinent past medical history of obesity, obstructive sleep apnea. She states that she has sub-dural hematoma and had some memory issues.?She is taking Oxybutynin 20mg BID. I have discussed with her that on taking long course of Oxybutynin at high doses may cause cognitive changes in elderly, and other side effects include dry mouth and dry eyes. I have recommended her to stop taking Oxybutynin and will try Gemtesa 75mg daily. Patient states that she had some dental issues gum line and she has been prescribed with eye drops for her eyes. I discussed alternatively with her including obesity, obstructive sleep apnea; however she has mixed symptoms including urge and stress. I would like to perform urodynamic in future for further evaluation of voiding. Evaluation today UA: leucocytes: negative; blood: negative; bladder scan PVR: 82mL Plan:?Discontinue taking Oxybutynin 20mg and start taking Gemtesa 75mg daily. Ordered renal US. Consider urodynamic test in future. Follow up in 6-weeks to re-evaluate urinary symptoms. 06/02/2023: Plan: Continue Gemtesa 75 mg. Follow up in 9 months. [facility] Medical History Morbid obesity with BMI of 50.0-59.9, adult Lymphedema Morbid obesity with BMI of 40.0-44.9, adult Major depression, recurrent, chronic Status post fall Altered mental status Polysubstance abuse Obstructive sleep apnea Morbid obesity with BMI of 45.0-49.9, adult Smoker Insomnia Allergic rhinitis Urinary incontinence Bilateral lower extremity edema Vitamin B12 deficiency GERD without esophagitis Osteoarthritis of multiple joints Elevated LFTs Benign essential hypertension Asthma Lumbar degenerative disc disease Impaired fasting glucose Pure hypercholesterolemia DDD (degenerative disc disease) PTSD (post-traumatic stress disorder) Depression Anxiety Surgical History History of hip replacement, total Family History Father Cancer Mother Medical history unknown Social History Household Members: Spouse Housing: Apartment Alcohol intake: current Alcohol intake frequency: holidays/special occasions only Alcohol type: beer and wine Patient Tobacco Use Status: Current everyday Tobacco user Tobacco use type: Cigarette Cigarette Packs Per Day: 1 Cigarettes Per Day: 20.0 Years Smoked: 42+ e-Cigarette/Vaping Use: Never Used Second Hand Smoke Exposure: Yes service: No Current occupational status: disabled Cognitive needs: No Hearing needs: No Vision needs: Yes (glasses) Review of Systems Const All systems reviewed & are unremarkable except as noted in HPI and below Reports no additional complaints Eyes Reports no additional complaints ENT Reports no additional complaints Card Denies dyspnea Resp Denies cough and Denies dyspnea GI Reports no additional complaints Reports no additional complaints Musc Reports no additional complaints Skin/Breast Denies rash and Denies unusual bruising Neuro Reports no additional complaints Psych Reports no additional complaints Endo Reports no additional complaints Boni/Lymph Reports no additional complaints Aller/Immun Reports no additional complaints Results Reviewed Results Reviewed: Date of Service: 05/31/23 EXAMINATION:? US RETROPERITONEAL COMPLETE (RENAL) CLINICAL INFORMATION: Renal stone. COMPARISON:? Renal ultrasound 10/14/2020 FINDINGS: RIGHT KIDNEY: 10.8 x 5.4 x 5.9 cm (SAG x AP x TRV). The kidney is normal in size, contour, and echogenicity. Renal cortical thickness is normal. No calculi or focal parenchymal lesions. No hydronephrosis. LEFT KIDNEY: 11.3 x 5.6 x 4.2 cm (SAG x AP x TRV). The kidney is normal in size, contour, and echogenicity. Renal cortical thickness is normal. No calculi or focal parenchymal lesions. No hydronephrosis. BLADDER: Well distended and normal. Bilateral ureteral jets are not demonstrated. Prevoid bladder volume is 229 mL. Postvoid bladder volume is 2 mL. IMPRESSION:? No hydronephrosis or nephrolithiasis Assessment & Plan Assessment & Plan (1) Mixed incontinence urge and stress: Code(s): N39.46 - Mixed incontinence (2) Morbid obesity with BMI of 50.0-59.9, adult: Code(s): E66.01 - Morbid (severe) obesity due to excess calories; Z68.43 - Body mass index [BMI] 50.0-59.9, adult (3) Overactive bladder: Code(s): N32.81 - Overactive bladder Plan Continue Gemtesa 75 mg. Follow up in 9 months. Patient Instructions: The patient had an opportunity to ask questions regarding treatment plan. All questions were answered. Imaging, Laboratory studies and physical exam results were discussed and reviewed in detail. No major barriers to understanding were identified. The patient expressed understanding and agreement with the above treatment plan. The patient is aware they should contact our office by phone for worsening of their current condition or the appearance of new symptoms. Compliance is encouraged with any medications and followup testing that is ordered. It is a privilege to be allowed the opportunity to participate in the urologic care of your patient. If you have any questions or concerns regarding treatment for the above conditions please do not hesitate to contact me. The office telephone contact is [phone]. This note is constructed in part using voice recognition software. While every effort has been made to ensure accuracy annealer helper errors may have been included. Yours sincerely, Ward Macias MD Telehealth Telehealth Location of provider rendering services: practice address Location of patient: address on file Patient Identification confirmed using: Name, : Yes Telehealth method: voice only Patient verbally consented to treatment: Yes Patient verbally consented to billing insurance company: Yes Patient informed of any privacy concerns related to visit: Yes Minutes spent on Phone/Video with Pt.: 15 Coding Level of Care Code Tele Est Pt Level 3 (76012) Diagnoses Mixed incontinence urge and stress N39.46 Morbid obesity with BMI of 50.0-59.9, adult E66.01; Z68.43 Overactive bladder N32.81
== END ==
PROVIDERS: PCP Internal Medicine; Visit Provider Urology
DX: N39.46 Mixed incontinence (principal); E66.01 Morbid (severe) obesity due to excess calories; Z68.43 Body mass index [BMI] 50.0-59.9, adult; N32.81 Overactive bladder
CPT/HCPCS: 99442

== ENCOUNTER → 2023-06-02 12:41 | Outpatient (BNVA) | payer OTHER, SELFPAY | PROVIDERS: PCP Internal Medicine; Visit Provider Urology ==

== ENCOUNTER 2024-04-04 14:15 | Outpatient (AMB) | payer OTHER, SELFPAY ==
--- NOTE | 2024-04-04 14:16 | A.OFFPC_ITS ---
Vital Signs 04/04/24 14:17 Height 5 ft 1 in Weight 271 lb 0.1 oz BMI 51.2 BP 132/80 Blood Pressure Location Lt brachial Position Sitting Pulse 97 Pulse Source Pulse Oximeter Pulse Oximetry (%) 96 Oxygen Delivery Method Room Air Intake Visit Reasons: PREOP RIGHT ANKLE Intake Note: Patient is here for a Pre-op for [type of surgery] scheduled with [provider name ] on [date]. Side Seam Machine Operator Required: No Allergies amlodipine Allergy (Unknown, Verified 04/04/24 14:37) unknown atorvastatin Adverse Reaction (Mild, Verified 04/04/24 14:37) cannot smell or taste anything while on Rx lisinopril Adverse Reaction (Mild, Verified 04/04/24 14:37) cough,hourseness Medication List - Last Reconciled 04/04/24 by Genevieve Zaidi PA-C acetaminophen (Pain Relief (acetaminophen)) 650 mg (2 x 325 mg) PO Q6H PRN adhesive bandage (Bandages) one inch bandages adhesive bandage As directed adhesive tape (Micropore Surgical) As directed [adult pullups As directed] [AIR CONDITIONER UNIT As directed] albuterol sulfate 90 mcg/actuation (Ventolin HFA) 2 puffs PO QID PRN [bed continuous process tanner rotary drum As directed] blood sugar diagnostic (FreeStyle Lite Strips) As directed once a day blood-glucose meter (FreeStyle [place] Lite kit) As directed bupropion HCl XL 300 mg PO QAM cholecalciferol (vitamin D3) 25 mcg PO DAILY clonidine HCl 0.1 mg PO BEDTIME cyanocobalamin (vitamin B-12) 100 mcg PO DAILY cyclobenzaprine 10 mg PO TID PRN [ELECTRIC BLANKET As directed. Patient lives in an apartment complex but has NO control over thermostat settings - states her landlord keeps the setting LOW and it is cold all the time in her apartment] fexofenadine 180 mg PO DAILY PRN fluticasone propionate 220 mcg/actuation (Flovent HFA) 1 puff inhalation BID furosemide 40 mg PO DAILY 30 days gabapentin 800 mg PO TID gauze bandage (Band-Aid Gauze Pads) As directed [HEATING BLANKET (cerrato size dual control) As directed] heating pads Use daily as directed heating pads LARGE HEATING PADS X3 humidifiers HUMIDIFIER - use daily as directed ibuprofen 800 mg PO TID PRN ice bag (Ice It! Pack) Use daily as directed incontinence pad, liner, disp (Poise Pads) extra long incontinence pad, liner, disp (Bladder Control Pads Ex Absorb) XL [incontinence wipes As directed] lancets (FreeStyle Lancets) As directed once a day lanolin-mineral oil (Eucerin Original lotion) 1 appl topical BID-TID PRN leg brace (Knee Support Brace) Reaction knee brace XL, XXL, mahajan leg brace (Knee Support Brace) reaction brace XL/XXL gonzalez lidocaine 5% 1 patch topical DAILY lidocaine-prilocaine 2.5-2.5 % 0 - 3 grams topical TID-QID [mattress cover As directed] mirabegron ER 25 mg PO DAILY 30 days mirtazapine 45 mg PO BEDTIME miscellaneous medical supply 1 ea miscellaneous miscellaneous medical supply 1 ea miscellaneous .weekly miscellaneous medical supply 1 ea miscellaneous TID phoivnva-crduoopmdKu-[id number] 3.5mg-400 unit- 5,000 unit/gram (Triple Antibiotic) 1 appl topical TID [NO-CRACK As directed] olopatadine 0.1% 1 drp ophthalmic (eye) BID [OMEGA XL 1 cap PO DAILY 90 days] omeprazole 20 mg PO DAILY paroxetine HCl 10 mg PO QAM paroxetine HCl 40 mg PO DAILY [sanitary napkins As directed] sennosides (Senna Laxative) 17.2 mg (2 x 8.6 mg) PO DAILY simvastatin 20 mg PO BEDTIME sodium chloride 0.9% 1 spray intranasal QID PRN [TAMAR STOCKINGS (medium compression strength) moderate compression - 20mmHg ] tramadol 50 mg PO TID PRN 30 days valsartan 160 mg PO DAILY vibegron (Gemtesa) 75 mg PO DAILY [WEDGE CUSHION for BED firm wedges if available] [wipes As directed] Tobacco use date assessed: 04/04/24 Dental Screening Dental Screen Date: 04/04/24 HPI PREOP RIGHT ANKLE HPI Details 54-year-old female with past history of depression, polysubstance abuse, lymphedema, overactive bladder, obstructive sleep apnea, GERD, impaired glucose tolerance, hypercholesterolemia, and hypertension last seen by Dr. Peterson 04/18/2023 coming in for pre op ankle surgery.? In review of the notes patient was seen by Urology 06/02/2023 for follow-up on incontinence with plan to continue on Gemtesa and follow up in 9 months.?Seen by pulmonology 06/01/2023, continued on CPAP, referred for lung cancer screening, taking Chantix, and referred for PFTs. Today she tells us she has no concerns at this time. She is having continued right foot pain and difficulty walking. Impaired glucose tolerance: Last fasting glucose was elevated we will re- evaluate with updated A1c and labs. hypertension: Patient is taking valsartan and blood pressure is currently at goal. Patient has no history of IL, CVA, or congestive heart failure. She has not taking any aspirin, blood thinners, or diabetic medication. Patient does admit although she quit smoking back in May she did have a few cigarettes the other day. [facility] Medical History (Updated 04/04/24 @ 14:20 by Genevieve Zaidi PA-C) Benign essential hypertension Pure hypercholesterolemia Impaired fasting glucose (~2019) GERD without esophagitis Asthma Allergic rhinitis Nicotine dependence, cigarettes, uncomplicated Mixed incontinence urge and stress Morbid obesity with BMI of 45.0-49.9, adult Lymphedema Polysubstance abuse PTSD (post-traumatic stress disorder) Major depression, recurrent, chronic Anxiety Insomnia Vitamin B12 deficiency Osteoarthritis of multiple joints Lumbar degenerative disc disease History of subdural hematoma Surgical History (Updated 07/24/23 @ 11:07 by Mónica Howe PA-C) History of colonoscopy History of bilateral hip replacements Family History Father Cancer Mother Medical history unknown Social History Household Members: Spouse Housing: Apartment Alcohol intake: current Alcohol intake frequency: holidays/special occasions only Alcohol type: beer and wine Patient Tobacco Use Status: Current everyday Tobacco user Tobacco use type: Cigarette Cigarette Packs Per Day: 1 Cigarettes Per Day: 20.0 Years Smoked: 42+ Packs Per Year: 0 Packs per year/per ci.00 e-Cigarette/Vaping Use: Never Used Second Hand Smoke Exposure: Yes service: No Current occupational status: disabled Cognitive needs: No Hearing needs: No Vision needs: Yes (glasses) Questionnaire Thrive Questionnaire Date Thrive assessed: 04/18/23 AUDIT C Alcohol Use Questionnaire (AUDIT-C) 1. How often do you have a drink containing alcohol?: Never 3. How often do you have six or more drinks on one occasion?: Never Total Score: 0 Score Reviewed/Action Taken: Yes BLAKE-7 AMB Questionnaire BLAKE-7 Date BLAKE - 7 assessed: 04/18/23 Source: Developed by Drs. Brice Samuel, Anu Lockhart, Jeremiah Angeles and colleagues, with an educational faby from [employer]. Review of Systems Const Denies chills, Denies fatigue and Denies fever(s) Eyes Reports no additional complaints ENT Denies dysphagia, Denies dizziness and Denies odynophagia Card Details: Bilateral chronic leg swelling Denies chest pain, Denies syncope, Denies lightheadedness, Denies palpitations and Denies dyspnea Resp Denies cough and Denies dyspnea GI Reports constipation, Denies dysphagia, Denies diarrhea, Denies nausea, Denies odynophagia and Denies vomiting Reports no additional complaints Musc Reports no additional complaints Skin/Breast Reports system reviewed and no additional complaints, except as documented Neuro Denies dizziness, Denies syncope and Denies focal weakness Psych Reports no additional complaints Endo Denies fatigue and Denies palpitations Physical exam (Primary Care) Vital Signs: Last Vital Signs Pulse 97 04/04/24 14:17 BP 132/80 04/04/24 14:17 Pulse Ox 96 04/04/24 14:17 Oxygen Delivery Method Room Air 04/04/24 14:17 BMI result Body Mass Index 51.2 Tobacco/Smoking Status: Tobacco use Status Tobacco use date assessed 04/04/24 04/04/24 14:18 Patient Tobacco Use Status Current everyday Tobacco 04/04/24 14:18 Tobacco use type Cigarette 04/04/24 14:18 e-Cigarette/Vaping Use Never Used 04/04/24 14:18 Thrive Assessment: Date of Thrive Assessment Date Thrive assessed 04/18/23 04/04/24 14:18 Const General: alert and awake Orientation/consciousness: patient oriented x3 HENMT Head: Yes normocephalic Ears: external ears normal and TM's normal bilaterally Face and sinus: Yes normal facial exam Mouth: moist mucous membranes Eyes Conjunctivae: conjunctivae normal Neck Neck: No lymphadenopathy Chest Chest palpation & inspection: normal inspection of the chest Resp Effort & Inspection: normal respiratory effort and no audible wheezes Auscultation: clear to auscultation bilaterally, no crackles, no wheezes and lung sounds not diminished Cardio Rate: regular rate Rhythm: regular rhythm Peripheral pulses: radial pulses present GI Palpation (GI): no masses Skin General skin exam: no rashes or lesions noted Rashes: no rashes Neuro General: patient oriented x3 Cognition (Neuro): normal cognition Gait exam (Neuro): Normal gait present Extrem Other: Bilateral chronic 1+ pitting edema with overlying skin redness General: Yes normal to inspection and Yes full ROM Psych Appearance: grossly normal Mental Status: mental status grossly normal Speech and movement: Normal speech and movement present Affect: normal affect Attitude: cooperative Thought process: Normal thought process present Thought content: Normal thought content present Insight: Good insight present (Psych) Judgement: Good judgement present (Psych) Assessment and Plan Assessment & Plan (1) Pre-op evaluation: Code(s): Z01.818 - Encounter for other preprocedural examination Plan: Patient is considered moderate risk for this procedure due to her age along with her comorbidities and obesity. Pending blood work and EKG for further evaluation and will be added when available. Patient instructed to avoid meloxicam and ibuprofen 5 days prior to surgery. Instructed patient she must take her blood pressure medication on the day of the surgery and can hold medications until after the procedure. Reviewed with the patient that no surgery is completely free of risk and that this examination is to assist the surgeon in reviewing informed consent. Orders: Orders Vitamin D 25-OH Total Today E55.9 - Vitamin D deficiency, unspecified Complete Blood Count Auto Diff Today I10 - Essential (primary) hypertension Comprehensive [place]. Panel Fast Today E78.00 - Pure hypercholesterolemia, unspecified Hemoglobin A1c Today R73.01 - Impaired fasting glucose TSH reflex Free T4 Today E78.00 - Pure hypercholesterolemia, unspecified Lipid Panel Today E78.00 - Pure hypercholesterolemia, unspecified ECG 12 lead EKG Today Z01.818 - Encounter for other preprocedural examination Medications: New nicotine (polacrilex) 2 mg buccal Q2H 20 ea 2RF Refilled sodium chloride 0.9% 1 spray intranasal QID PRN 85 grams 5RF dry nasal passages Coding Level of Care Code Est Pt Level 4 (86274) Diagnoses Pre-op evaluation Z01.818
[2024-04-04 14:17] VITALS: BP 132/80; PULSE 97; O2SAT 96; BMI 51.2
== END 2024-04-04 15:04 | disposition home or self-care (01) ==
PROVIDERS: PCP Internal Medicine
DX: Z01.818 Encounter for other preprocedural examination (principal)
CPT/HCPCS: 99214

== ENCOUNTER 2024-05-10 14:26 | Outpatient (REF) | payer OTHER, SELFPAY ==
[2024-05-10 14:48] LABS: MANUAL DIFF FLAG NO
[2024-05-10 15:32] LABS: Basophils Absolute Auto 0.1 X10*3/uL (0.0-0.2); Eosinophils Absolute Auto 0.4 X10*3/uL (0.0-0.4); Eosinophils Percent Auto 6.5 % (0-4); Hematocrit 34.7 % (37.0-47.0); Hemoglobin 11.2 g/dl (12.0-16.0); Imm Gran Abs Auto 0.02 X10*3/uL (0.00-0.03); Imm Gran Pct Auto 0.3 % (0.0-0.4); Lymphocytes Absolute Auto 1.9 X10*3/uL (1.2-4.9); Lymphocytes Percent Auto 30.6 % (20-40); Mean Corpuscular HGB Conc 32.3 g/dl (31.0-35.0); Mean Corpuscular Hemoglobin 29.5 pg (27.0-33.0); Mean Corpuscular Volume 91.3 fL (80.0-98.0); Mean Platelet Volume 9.5 fL (9.4-12.3); Monocytes Absolute Auto 0.4 X10*3/uL (0.1-1.2); Monocytes Percent Auto 7.1 % (2-11); Neutrophils Absolute Auto 3.4 x10*3/uL (2.0-8.3); Neutrophils Percent Auto 54.5 % (45-73); Platelet Count 295 X10*3/uL (160-400); Red Cell Distribution Width 14.9 % (11.0-16.0); White Blood Count 6.2 X10*3/uL (4.8-10.8)
[2024-05-10 15:48] LABS: Estimated Average Glucose 117 mg/dL; Hemoglobin A1c % 5.7 % (<6.0)
[2024-05-10 16:00] LABS: Alanine Aminotransferase 25 U/L (0-31); Albumin Level 4.3 g/dL (3.5-5.0); Alkaline Phosphatase 54 U/L (39-117); Anion Gap 11 (12-20); Aspartate Amino Transferase 23 U/L (5-31); Bilirubin Total 0.3 mg/dL (0.0-1.0); Blood Urea Nitrogen 7 mg/dL (9-16); Calcium 9.7 mg/dL (8.4-10.2); Carbon Dioxide 33 mmol/L (22-29); Chloride 103 mmol/L (96-108); Cholesterol 162 mg/dL (<200); Estimated Glomerular Filt Rate > 60; Glucose Fasting 98 mg/dL (60-99); HDL Cholesterol 32 mg/dL (>40); LDL Cholesterol Calculated 66 mg/dL (<100); Potassium 4.1 mmol/L (3.3-5.1); Sodium 143 mmol/L (135-145); Total Protein 7.4 g/dL (6.5-8.0); Triglycerides 322 mg/dL (<150)
[2024-05-10 16:17] LABS: TSH reflex Free T4 0.59 uIU/mL (0.32-4.0); Vitamin D 25-OH Total 34.8 ng/mL (>30)
== END 2024-05-10 14:27 | disposition home or self-care (01) ==
LOC: HO.LAB 14:26
PROVIDERS: PCP Internal Medicine
DX: E55.9 Vitamin D deficiency, unspecified (principal); E78.00 Pure hypercholesterolemia, unspecified; I10 Essential (primary) hypertension; R73.01 Impaired fasting glucose
CPT/HCPCS: 36415; 80053; 80061; 82306; 83036; 84443; 85025

== ENCOUNTER 2024-06-17 14:17 | Outpatient (REF) | payer OTHER, SELFPAY ==
[2024-06-17 16:27] LABS: Alanine Aminotransferase 21 U/L (0-31); Albumin Level 4.6 g/dL (3.5-5.0); Alkaline Phosphatase 60 U/L (39-117); Anion Gap 13 (12-20); Aspartate Amino Transferase 19 U/L (5-31); Bilirubin Total 0.2 mg/dL (0.0-1.0); Blood Urea Nitrogen 7 mg/dL (9-16); Calcium 9.5 mg/dL (8.4-10.2); Carbon Dioxide 23 mmol/L (22-29); Chloride 109 mmol/L (96-108); Estimated Glomerular Filt Rate > 60; Glucose Random 99 mg/dL (60-115); Potassium 4.2 mmol/L (3.3-5.1); Sodium 141 mmol/L (135-145)
== END 2024-06-17 14:18 | disposition home or self-care (01) ==
LOC: HO.LAB 14:17
PROVIDERS: PCP Internal Medicine
DX: L02.416 Cutaneous abscess of left lower limb (principal); Z00.00 Encounter for general adult medical examination without abnormal findings
CPT/HCPCS: 36415; 80053; 99212

== ENCOUNTER 2024-06-17 14:17 | Outpatient (AMB) | payer OTHER, SELFPAY ==
[2024-06-17 14:19] VITALS: BP 136/82; PULSE 95; O2SAT 96; BMI 45.3
--- NOTE | 2024-06-17 14:19 | A.OFFPC_ITS ---
Vital Signs 3 06/17/24 14:19 Height 5 ft 1 in Weight 240 lb BMI 45.3 BP 136/82 Blood Pressure Location Lt brachial Position Sitting Pulse 95 Pulse Source Pulse Oximeter Pulse Oximetry (%) 96 Oxygen Delivery Method Room Air Intake Visit Reasons: Open Sore on back of leg Rn Clinical Resource Required: No Accompanied by: Self / Same As Patient Allergies amlodipine Allergy (Unknown, Verified 06/17/24 14:19) unknown atorvastatin Adverse Reaction (Mild, Verified 06/17/24 14:19) cannot smell or taste anything while on Rx lisinopril Adverse Reaction (Mild, Verified 06/17/24 14:19) cough,hourseness Medication List - Last Reconciled 06/17/24 by Genevieve Zaidi PA-C acetaminophen (Pain Relief (acetaminophen)) 650 mg (2 x 325 mg) PO Q6H PRN adhesive bandage (Bandages) one inch bandages adhesive bandage As directed adhesive tape (Micropore Surgical) As directed [adult pullups As directed] [AIR CONDITIONER UNIT As directed] albuterol sulfate 90 mcg/actuation (Ventolin HFA) 2 puffs PO QID PRN [bed stenographer print shop As directed] blood sugar diagnostic (FreeStyle Lite Strips) As directed once a day blood-glucose meter (FreeStyle Kamas Lite kit) As directed bupropion HCl XL 300 mg PO QAM cholecalciferol (vitamin D3) 25 mcg PO DAILY clonidine HCl 0.1 mg PO BEDTIME cyanocobalamin (vitamin B-12) 100 mcg PO DAILY cyclobenzaprine 10 mg PO TID PRN [ELECTRIC BLANKET As directed. Patient lives in an apartment complex but has NO control over thermostat settings - states her landlord keeps the setting LOW and it is cold all the time in her apartment] fexofenadine 180 mg PO DAILY PRN fluticasone propionate 220 mcg/actuation (Flovent HFA) 1 puff inhalation BID furosemide 40 mg PO DAILY 30 days gabapentin 800 mg PO TID gauze bandage (Band-Aid Gauze Pads) As directed [HEATING BLANKET (cerrato size dual control) As directed] heating pads Use daily as directed heating pads LARGE HEATING PADS X3 humidifiers HUMIDIFIER - use daily as directed ibuprofen 800 mg PO TID PRN ice bag (Ice It! Pack) Use daily as directed incontinence pad, liner, disp (Poise Pads) extra long incontinence pad, liner, disp (Bladder Control Pads Ex Absorb) XL [incontinence wipes As directed] lancets (FreeStyle Lancets) As directed once a day lanolin-mineral oil (Eucerin Original lotion) 1 appl topical BID-TID PRN leg brace (Knee Support Brace) Reaction knee brace XL, XXL, mahajan leg brace (Knee Support Brace) reaction brace XL/XXL gonzalez lidocaine 5% 1 patch topical DAILY lidocaine-prilocaine 2.5-2.5 % 0 - 3 grams topical TID-QID [mattress cover As directed] mirabegron ER 25 mg PO DAILY 30 days mirtazapine 45 mg PO BEDTIME miscellaneous medical supply 1 ea miscellaneous miscellaneous medical supply 1 ea miscellaneous .weekly miscellaneous medical supply 1 ea miscellaneous TID uhvswham-[id number]-[id number] 3.5mg-400 unit- 5,000 unit/gram (Triple Antibiotic) 1 appl topical TID nicotine (polacrilex) 4 mg buccal Q2H [NO-CRACK As directed] olopatadine 0.1% 1 drp ophthalmic (eye) BID [OMEGA XL 1 cap PO DAILY 90 days] omeprazole 20 mg PO DAILY paroxetine HCl 10 mg PO QAM paroxetine HCl 40 mg PO DAILY [sanitary napkins As directed] sennosides (Senna Laxative) 17.2 mg (2 x 8.6 mg) PO DAILY simvastatin 20 mg PO BEDTIME sodium chloride 0.9% 1 spray intranasal QID PRN [TAMAR STOCKINGS (medium compression strength) moderate compression - 20mmHg ] tramadol 50 mg PO TID PRN 30 days valsartan 160 mg PO DAILY vibegron (Gemtesa) 75 mg PO DAILY [WEDGE CUSHION for BED firm wedges if available] [wipes As directed] Tobacco use date assessed: 04/04/24 Dental Screening Dental Screen Date: 04/04/24 HPI Open Sore on back of leg 2 HPI0 Details 54-year-old female with past history of depression, polysubstance abuse, lymphedema, overactive bladder, obstructive sleep apnea, GERD, impaired glucose tolerance, hypercholesterolemia, and hypertension last seen March 2024 coming in for acute problem. Patient states she was seen in urgent care on for a left thigh abscess and was given Bactrim to be taken for 1 week. Since taking the antibiotic she has been having muscle spasms on her face and feels like she is slurring her words. Has also been falling out of bed the last few days and feels her muscles have been restless. Over the weekend the abscess did open and drain and she has had copious purulent drainage from the left thigh abscess. Denies any fevers, chest pain, shortness of breath, rashes. [facility] Medical History Benign essential hypertension Pure hypercholesterolemia Impaired fasting glucose (~2020) GERD without esophagitis Asthma Allergic rhinitis Nicotine dependence, cigarettes, uncomplicated Mixed incontinence urge and stress Morbid obesity with BMI of 45.0-49.9, adult Lymphedema Polysubstance abuse PTSD (post-traumatic stress disorder) Major depression, recurrent, chronic Anxiety Insomnia Vitamin B12 deficiency Osteoarthritis of multiple joints Lumbar degenerative disc disease History of subdural hematoma Surgical History History of colonoscopy History of bilateral hip replacements Family History Father Cancer Mother Medical history unknown Social History Household Members: Spouse Housing: Apartment Alcohol intake: current Alcohol intake frequency: holidays/special occasions only Alcohol type: beer and wine Patient Tobacco Use Status: Current everyday Tobacco user Tobacco use type: Cigarette Cigarette Packs Per Day: 1 Cigarettes Per Day: 20.0 Years Smoked: 42+ e-Cigarette/Vaping Use: Never Used Second Hand Smoke Exposure: Yes service: No Current occupational status: disabled Cognitive needs: No Hearing needs: No Vision needs: Yes (glasses) Questionnaire Thrive Questionnaire Date Thrive assessed: 04/18/23 Are you currently unemployed and looking for a job?: Yes BLAKE-7 AMB Questionnaire BLAKE-7 Date BLAKE - 7 assessed: 04/18/23 Source: Developed by Drs. Brice Samuel, Anu Lockhart, Jeremiah Angeles and colleagues, with an educational faby from [employer]. Review of Systems Const Denies body aches, Denies chills, Denies fever(s) and Denies poor appetite Eyes Reports no additional complaints ENT Denies dizziness Card Denies chest pain, Denies lightheadedness and Denies dyspnea Resp Denies dyspnea GI Denies abdominal pain, Denies constipation, Denies diarrhea, Denies nausea and Denies vomiting Reports no additional complaints Musc Reports no additional complaints and Denies abnormal gait Skin/Breast Reports as per HPI Neuro Denies abnormal gait and Denies dizziness Psych Reports no additional complaints Physical exam (Primary Care) Vital Signs: Oxygen Delivery Method Room Air 06/17/24 14:19 BMI result Body Mass Index 45.3 Tobacco/Smoking Status: Tobacco use Status Tobacco use date assessed 04/04/24 06/17/24 14:22 Patient Tobacco Use Status Current everyday Tobacco 06/17/24 14:22 Tobacco use type Cigarette 06/17/24 14:22 e-Cigarette/Vaping Use Never Used 06/17/24 14:22 Thrive Assessment: Date of Thrive Assessment Date Thrive assessed 04/18/23 06/17/24 14:22 Const General: cooperative, healthy appearing, comfortable and no acute distress Orientation/consciousness: patient oriented x3 HENMT Head: Yes normocephalic Ears: hearing grossly normal bilaterally General nose exam: Normal external nose present Eyes General: appearance normal, both eyes and all related structures Conjunctivae: conjunctivae normal Neck Neck: Yes full ROM and Yes no lymphadenopathy Resp Effort & Inspection: normal respiratory effort Auscultation: clear to auscultation bilaterally, no crackles, no rales, no rhonchi and no wheezes Cardio Rate: regular rate Rhythm: regular rhythm Skin Other: Three 4 cm open lesion with surrounding erythema and scant purulent drainage of proximal medial left thigh Full body images: 2 1. Abscess Neuro General: patient oriented x3 Gait exam (Neuro): Normal gait present Extrem General: Yes normal to inspection, Yes full ROM and No edema Psych Affect: normal affect Attitude: cooperative Insight: Good insight present (Psych) Judgement: Good judgement present (Psych) Assessment and Plan Assessment & Plan (1) Thigh abscess: Code(s): L02.419 - Cutaneous abscess of limb, unspecified Plan: Patient has now open and drained left thigh abscess which has been improving over the last few days. Recommend extending antibiotic therapy as the wound has been improving but most likely will need a longer dose. She does mentioned several side effects with Bactrim we will order for CMP and switch antibiotic to clindamycin for 10 days. Advised patient to watch for side effects of clindamycin and to reach out to the office if she begins to have copious watery diarrhea. Also advised patient to reach out to the office if she begins to have fevers, chest pain, rash, or worsening redness or drainage of the left lesion. Come and follow up in 1 week to monitor progress of the lesion and can consider wound care if lesion does not improving. Plan This note was constructed using voice recognition software. While every effort has been made to ensure accuracy and superintendent maintenance airports, still areas may have been included sometimes these areas may affect the content or meeting of the given symptoms. Total time spent caring for the patient today was 30 minutes. This includes time spent before the visit reviewing the chart, time spent during the visit, and time spent after the visit and documentation. Orders: Orders 2 Comprehensive Met. Panel Today Z00.00 - Encounter for general adult medical examination without abnormal findings Medications: New 2 clindamycin HCl 300 mg PO QID 10 days 40 caps 0RF Coding Level of Care Code Est Pt Level 4 (02256) Diagnoses Thigh abscess L02.419
== END 2024-06-17 15:08 | disposition home or self-care (01) ==
PROVIDERS: PCP Internal Medicine
DX: L02.419 Cutaneous abscess of limb, unspecified (principal)

== ENCOUNTER 2025-06-13 12:53 | Outpatient (AMB) | payer OTHER, SELFPAY ==
--- NOTE | 2025-06-13 12:55 | A.OFFPC_ITS ---
Vital Signs 06/13/25 12:56 Height 5 ft 1 in Weight 251 lb 4 oz BMI 47.5 BP 90/50 L Blood Pressure Location Lt brachial Position Sitting Respiration 18 Pulse 101 H Pulse Source Pulse Oximeter Temp 97.1 F Temp Source Temporal Artery Scan Pulse Oximetry (%) 92 Oxygen Delivery Method Room Air Intake Visit Reasons: 3 month f/u Permit Specialist Required: No Accompanied by: Self / Same As Patient Allergies amlodipine Allergy (Unknown, Verified 06/15/25 14:06) unknown atorvastatin Adverse Reaction (Mild, Verified 06/15/25 14:06) cannot smell or taste anything while on Rx lisinopril Adverse Reaction (Mild, Verified 06/15/25 14:06) cough,hourseness Medication List - Last Reconciled 06/15/25 by Leland Peterson MD [4 post cane As directed] acetaminophen (Pain Relief (acetaminophen)) 650 mg (2 x 325 mg) PO Q6H PRN adhesive bandage (Bandages) one inch bandages adhesive bandage As directed [adhesive bandages As directed] adhesive tape (Micropore Surgical) As directed [AIR CONDITIONER UNIT As directed] albuterol sulfate 90 mcg/actuation 2 puffs PO QID PRN [Bariatric twin bed As directed] blood sugar diagnostic (FreeStyle Lite Strips) As directed once a day blood-glucose meter (FreeStyle [place] Lite kit) As directed bupropion HCl XL 300 mg PO QAM cholecalciferol (vitamin D3) 25 mcg PO DAILY [adam pads As directed] clindamycin HCl 300 mg PO QID 10 days clonidine HCl 0.1 mg PO BEDTIME 30 days cyanocobalamin (vitamin B-12) 100 mcg PO DAILY cyclobenzaprine 10 mg PO TID PRN diclofenac sodium 1% (Arthritis Pain (diclofenac)) 4 grams topical QID [ELECTRIC BLANKET As directed. Patient lives in an apartment complex but has NO control over thermostat settings - states her landlord keeps the setting LOW and it is cold all the time in her apartment] fexofenadine 180 mg PO DAILY PRN vhkpxqefkwe-izhxlalcx-hxihmxij 200-62.5-25 mcg (Trelegy Ellipta) 1 inh inhalation DAILY 30 days furosemide 40 mg PO DAILY 30 days gabapentin 800 mg PO TID gauze bandage (Band-Aid Gauze Pads) As directed [heated dual control medical bed with rails As directed] [HEATING BLANKET (cerrato size dual control) As directed] heating pads Use daily as directed heating pads LARGE HEATING PADS X3 humidifiers HUMIDIFIER - use daily as directed ice bag (Ice It! Pack) Use daily as directed incontinence pad, liner, disp (Poise Pads) extra long incontinence pad, liner, disp (Bladder Control Pads Ex Absorb) XL [incontinence wipes As directed] lancets (FreeStyle Lancets) As directed once a day lanolin-mineral oil (Eucerin Original lotion) 1 appl topical BID-TID PRN latex gloves As directed leg brace (Knee Support Brace) Reaction knee brace XL, XXL, mahajan leg brace (Knee Support Brace) reaction brace XL/XXL gonzalez leg brace (Knee Brace Large-XLarge) As directed lidocaine 5% 1 patch topical DAILY lidocaine-prilocaine 2.5-2.5 % 0 - 3 grams topical TID-QID [mattress cover As directed] [medical tape As directed] meloxicam 15 mg PO DAILY PRN mirabegron ER 25 mg PO DAILY 30 days mirtazapine 45 mg PO BEDTIME 30 days miscellaneous medical supply 1 ea miscellaneous miscellaneous medical supply 1 ea miscellaneous .weekly miscellaneous medical supply 1 ea miscellaneous TID mupirocin 2% (Centany) 1 appl topical TID pddzfbla-idvkijqjaJu-lxxdyaalP 3.5mg-400 unit- 5,000 unit/gram (Triple Antibiotic) 1 appl topical TID nicotine (polacrilex) 4 mg buccal Q2H [NO-CRACK As directed] [Non-adherent dressing As directed] olopatadine 0.1% 1 drp ophthalmic (eye) BID [OMEGA XL 1 cap PO DAILY 90 days] omeprazole 20 mg PO DAILY paroxetine HCl 10 mg PO QAM paroxetine HCl 40 mg PO DAILY 30 days [sanitary napkins As directed] sennosides (Senna Laxative) 17.2 mg (2 x 8.6 mg) PO DAILY simvastatin 20 mg PO BEDTIME sodium chloride 0.9% 1 spray intranasal QID PRN [TAMAR STOCKINGS (medium compression strength) moderate compression - 20mmHg ] tramadol 50 mg PO TID PRN 30 days valsartan 160 mg PO DAILY varenicline tartrate 1 mg PO BID 28 days vibegron (Gemtesa) 75 mg PO DAILY walker As directed [WEDGE CUSHION for BED firm wedges if available] [wipes As directed] [XL adult pullups As directed] Tobacco use date assessed: 06/13/25 Dental Screening Dental Screen Date: 06/13/25 Did you have a dental visit in the last 12 months?: No Did you have a dental problem in the last 6 months where you did not have access to dental care?: No Was dental information given to patient?: No HPI 3 month f/u HPI Details Patient comes in today for her follow-up visit - she was last seen by me over 2 years ago on 04/18/2023 She continues to complain of increased pain all over, especially over her lower back, knees and her right ankle States that her condition has gotten significantly worse since she was last seen by me and she is now mostly wheelchair bound she is no longer able to walk due to her chronic right ankle issues She was scheduled for corrective surgery on her right foot/ankle earlier this year but her surgery was postponed indefinitely when she admitted to active heroin use She was advised that she needs to enter a program and prove that she is no longer actively using drugs before they can proceed with surgery but patient has indicated that she is not willing to do so She was therefore advised to reach out to Orthopedics again to reconsider surgical correction once her situation has changed and improved She states that she has been experiencing frequent chest congestion and on and off chest tightness and feels that her asthma has been slowly getting worse - notes that she coughs up a lot of phlegm and sometimes feels like she is choking on them She is unfortunately still actively smoking at this time and her oxygen saturation on room air today in the office is at 90% Adds that she would like to get her prescription for Mupirocin ointment refilled for her recurrent nasal sores She denies any fever or sore throat; denies any headaches or dizziness lately Denies any exertional chest pains No nausea/vomiting, no abdominal pain No change in bowel habits noted She does not have any follow-up labs done recently - her labs were last done back in April of 2024 As usual, she is requesting for prescriptions for numerous medical and household supplies and equipments that she tries to get insurance to cover as much as she can, including Rx for OTC acetaminophen and Band-Aids - states that she is on a very limited income and can not afford to buy any of these [id number] [facility] Medical History Benign essential hypertension Pure hypercholesterolemia Impaired fasting glucose (~2020) GERD without esophagitis Asthma Allergic rhinitis Nicotine dependence, cigarettes, uncomplicated Mixed incontinence urge and stress Morbid obesity with BMI of 45.0-49.9, adult Lymphedema Polysubstance abuse PTSD (post-traumatic stress disorder) Major depression, recurrent, chronic Anxiety Insomnia Vitamin B12 deficiency Osteoarthritis of multiple joints Lumbar degenerative disc disease History of subdural hematoma Surgical History History of colonoscopy History of bilateral hip replacements Family History Father Cancer Mother Medical history unknown Social History Household Members: Spouse Housing: Apartment Alcohol intake: current Alcohol intake frequency: holidays/special occasions only Alcohol type: beer and wine Patient Tobacco Use Status: Current everyday Tobacco user Tobacco use type: Cigarette Cigarette Packs Per Day: 1 Cigarettes Per Day: 20.0 Years Smoked: 42+ e-Cigarette/Vaping Use: Never Used Second Hand Smoke Exposure: Yes service: No Current occupational status: disabled Cognitive needs: No Hearing needs: No Vision needs: Yes (glasses) Questionnaire PHQ-9 Over the last 2 weeks, how often have you been bothered by any of the following problems? 1. Little interest or pleasure in doing things: nearly every day 2. Feeling down, depressed, or hopeless: nearly every day 3. Trouble falling or staying asleep, or sleeping too much: nearly every day 4. Feeling tired or having little energy: nearly every day 5. Poor appetite or overeating: more than half the days 6. Feeling bad about yourself - or that you are a failure or have let yourself or your family down: nearly every day 7. Trouble concentrating on things, such as reading the newspaper or watching television: more than half the days 8. Moving or speaking so slowly that other people could have noticed. Or the opposite - being so fidgety or restless that you have been moving around a lot more than usual: several days 9. Thoughts that you would be better off or of hurting yourself in some way: not at all Total score: 20 Depression Screening Interpretation: Positive Depression Screening Follow-up: Existing condition and In treatment Depression Screening Done: Yes 52898 - PHQ-9 Billing: Yes Source: Developed by Drs. Brice Samuel, Anu Lockhart, Jeremiah Angeles and colleagues, with an educational faby from [employer]. Thrive Questionnaire Date Thrive assessed: 06/13/25 I am a: Patient What is your living situation today?: I have a place to live, but I am worried about losing it in the future Within the past 12 months, did the food you bought not last and you didn't have the money to get more?: Often true Within the past 12 months, did you worry whether your food would run out before you got money to buy more?: Often true Do you have trouble paying for medicines?: No Do you have trouble getting transportation to medical appointments?: No Do you have trouble paying your heating and electricity bill?: Yes Do you have trouble taking care of your child, family member or friend?: Yes Do you have trouble with day-to-day activities such as bathing, preparing meals, shopping, managing finances, etc.?: Yes Are you currently unemployed and looking for a job?: No Are you interested in more education?: No Please select the resources that you would like help with: Housing/Detention, Food and Utilities Currently or been in a relationship where the following occur: No concerns reported THRIVE Score: 4 AUDIT C Alcohol Use Questionnaire (AUDIT-C) 1. How often do you have a drink containing alcohol?: Monthly or less 2. How many drinks containing alcohol do you have on a typical day when you are drinking?: 3 or 4 3. How often do you have six or more drinks on one occasion?: Never Total Score: 2 Score Reviewed/Action Taken: Yes BLAKE-7 AMB Questionnaire BLAKE-7 Date BLAKE - 7 assessed: 04/18/23 Feeling nervous, anxious, or on edge: 3 = Nearly every day Not being able to stop or control worryin = Nearly every day Worrying too much about different things: 3 = Nearly every day Trouble relaxin = Nearly every day Being so restless that it is hard to sit still: 3 = Nearly every day Becoming easily annoyed or irritable: 0 = Not at all Feeling afraid as if something awful might happen: 0 = Not at all Total BLAKE-7 score (0-4 normal; 5-9 mild; 10-14 moderate; 15-21 severe): 15 Source: Developed by Drs. Brice Samuel, Anu Lockhart, Jeremiah Angeles and colleagues, with an educational faby from [employer]. Review of Systems Const Denies chills, Reports fatigue, Denies fever(s) and Denies headache(s) ENT Denies dysphagia, Denies dizziness, Denies otalgia, Denies headache(s), Reports neck pain, Denies odynophagia and Denies sore throat Card Denies chest pain, Denies palpitations, Reports dyspnea (on and off) and Reports dyspnea on exertion Resp Reports chest congestion (frequent), Reports cough (recurrent - coughs up thick whitish to yellowish phlegm often), Reports excessive phlegm production, Reports dyspnea (on and off), Reports dyspnea on exertion and Denies wheezing GI Denies abdominal pain, Denies constipation, Denies dysphagia, Denies heartburn, Denies diarrhea, Denies nausea, Denies odynophagia and Denies vomiting Denies difficulty voiding, Denies nocturia, Denies dysuria and Reports urinary incontinence (at times) Musc Reports back pain (over the lumbar spine - chronic), Reports myalgias, Reports deformity (of the right ankle/foot - has severe pes planovalgus deformity), Reports arthralgias (over multiple joints, incl. both knees, L shoulder and R ankle) and Reports neck pain Skin/Breast Denies rash Neuro Details: (+) mild aphasia Denies dizziness, Denies headache(s), Reports memory loss and Denies convulsions Psych Reports memory loss Endo Reports fatigue and Denies palpitations Aller/Immun Denies wheezing Physical exam (Primary Care) Vital Signs: Last Vital Signs Temp 97.1 F 06/13/25 12:56 Pulse 101 H 06/13/25 12:56 Resp 18 06/13/25 12:56 BP 90/50 L 06/13/25 12:56 Pulse Ox 92 06/13/25 12:56 Oxygen Delivery Method Room Air 06/13/25 12:56 BMI result Body Mass Index 47.5 Tobacco/Smoking Status: Tobacco use Status Tobacco use date assessed 06/13/25 06/13/25 12:57 Patient Tobacco Use Status Current everyday Tobacco 06/13/25 12:57 Tobacco use type Cigarette 06/13/25 12:57 e-Cigarette/Vaping Use Never Used 06/13/25 12:57 PHQ-9: PHQ-9 Score PHQ-9: Total score 06/13/25 13:22 Depression Screening Interpretation: Positive Depression Screening Follow-up: Existing condition and In treatment Thrive Assessment: Date of Thrive Assessment Date Thrive assessed 04/18/23 06/13/25 12:57 Currently or been in a relationship where the following occur: No concerns reported Const General: no acute distress and alert Limitations: wheelchair (although she can get up and walk slowly (limited) with the assistance) HENMT Ears: TM's normal bilaterally and EAC's normal Throat: Yes posterior oropharynx normal and Yes tonsils normal (no TP congestion noted) Neck Neck: No lymphadenopathy and Yes tender Thyroid: Thyroid normal Resp Auscultation: no crackles, no rales, rhonchi (scattered) throughout, no wheezes and diminished lung sounds bilateral Cardio Rate: regular rate Rhythm: regular rhythm Heart sounds: no murmurs GI Palpation (GI): Soft to palpation and nontender Auscultation: normal bowel sounds General: Yes no CVA tenderness Back/Spine/Pelvis Back: no CVA tenderness Cervical Spine: Cervical spine tenderness (especially over the left side presently) Thoracic/Lumbar Spine: lumbar spinal tenderness Skin Rashes: no rashes Neuro General: no focal motor deficits Gait exam (Neuro): Assisted gait required (unsteady) Gait assisted method: walker Extrem Other: (+) severe pes planovalgus deformity of the right ankle, with a near complete lateral peritalar dislocation of the hindfoot - she has no active posterior tibial tendon function General: Yes no clubbing, cyanosis or edema Right lower extremity: knee Details: tenderness; no swelling and ankle (ankle is everted outward at a 45 degree angle with no tenderness on exam) Details: no tenderness Left lower extremity: knee Details: tenderness; no swelling Psych Affect: Labile affect present (normal at one time, then crying and upset the next) Coding Level of Care Code Est Pt Level 4 (04396) Complex EM visit Add On G2211 Diagnoses Pure hypercholesterolemia E78.00 Benign essential hypertension I10 Moderate persistent asthma without complication J45.40 Asthma severity: moderate Asthma persistence: persistent Asthma complication type: uncomplicated Impaired fasting glucose R73.01 Elevated LFTs R79.89 Dislocation of right ankle joint, sequela S93.04XS Encounter type: sequela Laterality: right Degeneration of intervertebral disc of lumbar region with discogenic back pain M51.360 Disc-related pain type: discogenic back pain only Osteoarthritis of multiple joints, unspecified osteoarthritis type M15.9 Osteoarthritis type: unspecified GERD without esophagitis K21.9 Vitamin B12 deficiency E53.8 Allergic rhinitis, unspecified seasonality, unspecified trigger J30.9 Allergic rhinitis trigger: unspecified Allergic rhinitis seasonality: unspecified Bilateral lower extremity edema R60.0 Urinary incontinence, unspecified type R32 Urinary Incontinence type: unspecified incontinence Primary insomnia F51.01 Insomnia type: primary Episode of recurrent major depressive disorder, unspecified depression episode severity F33.9 Depression Type: major depressive disorder Major depression recurrence: recurrent Active/Remission status: currently active Major depression episode severity: unspecified Smoker F17.200 Morbid obesity with BMI of 45.0-49.9, adult E66.01; Z68.42 Additional Codes PHQ-9 - 19264 - PHQ-9 Billing: Yes ([id number]) Assessment & Plan Assessment & Plan (1) Pure hypercholesterolemia: Code(s): E78.00 - Pure hypercholesterolemia, unspecified Category: Medical Plan: Patient has not had any follow up labs done since April 2024 so will send her for labs MEGAN Her cholesterol numbers were well-controlled when they were last checked last year Reinforced low cholesterol diet Continue Simvastatin 20 mg QD (2) Benign essential hypertension: Code(s): I10 - Essential (primary) hypertension Category: Medical Plan: Reinforced low-sodium diet - goal is systolic BP of at least 120 to 130 mm Her blood pressure is low today at 90/50 mm She is currently on Valsartan 160 mg QD and is also on Furosemide 40 mg QD for edema Will have her get her labs done MEGAN and depending on her lab results, we may need to make some adjustments/changes to her BP meds if her BP continues to stay low and/or she becomes symptomatic (3) Asthma: Comment: (Longstanding Hx Bronchial Asthma with suspected significant degree of Restrictive Lung Disease) PLAN TO DO A COMPLETE PFT, AND THEN SEE IF WE CAN READJUST MEDICAL REGIMEN. ONCE THIS PATIENT STARTS USING CPAP REGULARLY WE NEED TO DO OVERNIGHT OXIMETRY RECORDING TO MAKE SURE THAT HER HYPOXEMIA IS CORRECTED. Code(s): J45.909 - Unspecified asthma, uncomplicated Category: Medical Qualifiers: Asthma severity: moderate Asthma persistence: persistent Asthma complication type: uncomplicated Qualified Code(s): J45.40 - Moderate persistent asthma, uncomplicated Plan: She is currently still on Flovent HFA 220 mcg 1 puff twice a day and Ventolin HFA 2 puffs 4 times a day as needed but her asthma (she may actually have COPD or asthma-COPD overlap) does not appear to be controlled at all She is unfortunately still smoking up to a pack of cigarettes a day actively and has no plans to quit Will send her for chest x-rays MEGAN for further evaluation Will try switching her from Flovent HFA to Trelegy Ellipta 200-62.5-25 mcg 1 inhalation QD - patient has indicated that she does better with powdered inhaler formulation rather than the sprays Continue Ventolin HFA 2 inhalations QID PRN Will also try referring her to pulmonary for further evaluation and management (4) Impaired fasting glucose: Onset Date: ~2019 Comment: (FBS 105 on 04/30/2020; FBS 103 on 04/21/2023) Code(s): R73.01 - Impaired fasting glucose Category: Medical Plan: Her HgbA1c was normal at 5.7% when last checked last year Reinforced low calorie diet / exercise as tolerated (5) Elevated LFTs: Code(s): R79.89 - Other specified abnormal findings of blood chemistry Category: Medical Plan: Improved on her previous labs and her LFTs have actually been normal on her labs done last year - these were most likely due to her weight Due to her physical issue, weight loss is not realistic Will continue to monitor her LFTs regularly (6) Dislocation of ankle joint: Code(s): S93.06XA - Dislocation of unspecified ankle joint, initial encounter Category: Medical Qualifiers: Encounter type: sequela Laterality: right Qualified Code(s): S93.04XS - Dislocation of right ankle joint, sequela Plan: Per OV report from [facility] (Dr. Dipti Mtz), patient has severe stage IV posterior tibial tendon dysfunction with severe lateral patellar subluxation /dislocation and midfoot instability Treatment options were discussed with patient including surgical correction but will likely involve a cooley talar arthrodesis as well as TMT fusion but has been advised that as long as she is actively smoking up to 1 pack of cigarettes a day, she is too high of a risk for surgery and is not considered a surgical candidate at this time She was scheduled for corrective surgery on her right foot/ankle earlier this year but her surgery was postponed indefinitely when she admitted to active heroin use She was advised that she needs to enter a program and prove that she is no longer actively using drugs before they can proceed with surgery but patient has indicated that she is not willing to do so She was therefore advised to reach out to Orthopedics again to reconsider surgical correction once her situation has changed and improved Will try referring her again to podiatry (per her request as she used to see Dr. Patel but he last year in 2023) for further evaluation and management but patient is advised that there is likely not too many alternative options left for her ankle that have not yet been considered (7) Lumbar degenerative disc disease: Code(s): M51.36 - Other intervertebral disc degeneration, lumbar region Category: Medical Qualifiers: Disc-related pain type: discogenic back pain only Qualified Code(s): M51.360 - Other intervertebral disc degeneration, lumbar region with discogenic back pain only Plan: Reinforced activity and weight lifting restrictions to avoid aggravating her back pain Continue Tramadol 50 mg 3 times a day as needed, Cyclobenzaprine 10 mg 3 times a day as needed and Gabapentin 800 mg TID Patient was being prescribed Oxycodone from the practice previously but this was discontinued a few years ago after she violated her pain management agreement (had inappropriate urine drug screen results) She is currently still actively using (heroin) and has indicated to orthopedics ([facility]) earlier this year when she was advised that she needs proof and documentation that she is no longer using for them to be able to proceed with surgery on her ankle that she has no plans to quit She was also previously referred to pain management but she did not pursue this (8) Osteoarthritis of multiple joints: Code(s): M15.9 - Polyosteoarthritis, unspecified Category: Medical Qualifiers: Osteoarthritis type: unspecified Qualified Code(s): M15.9 - Polyosteoarthritis, unspecified Plan: Her joint pains affect primarily her knees, hips and right ankle - to follow-up with [facility] as scheduled Continue Ibuprofen 800 mg 3 times a day with food as needed and Acetaminophen 325 mg 1-2 tablets every 6 hours as needed (9) GERD without esophagitis: Code(s): K21.9 - Gastro-esophageal reflux disease without esophagitis Category: Medical Plan: Dietary restrictions reinforced Continue Omeprazole 20 mg QD (10) Vitamin B12 deficiency: Code(s): E53.8 - Deficiency of other specified B group vitamins Category: Medical Plan: Continue Vitamin B12 1000 mcg 1 tablet daily Will recheck vitamin B12 level MEGAN for follow-up (11) Allergic rhinitis: Code(s): J30.9 - Allergic rhinitis, unspecified Category: Medical Qualifiers: Allergic rhinitis trigger: unspecified Allergic rhinitis seasonality: unspecified Qualified Code(s): J30.9 - Allergic rhinitis, unspecified Plan: Continue Fexofenadine 180 mg QD PRN (12) Bilateral lower extremity edema: Code(s): R60.0 - Localized edema Category: Medical Plan: Most likely stasis edema - her renal function was normal when last checked last year - will recheck this MEGAN Patient advised to continue elevating her legs as often as she can; she also wears compression stockings when needed Continue Furosemide 40 mg once a day in AM as needed for edema (13) Urinary incontinence: Code(s): R32 - Unspecified urinary incontinence Category: Medical Qualifiers: Urinary Incontinence type: unspecified incontinence Qualified Code(s): R32 - Unspecified urinary incontinence Plan: Continue Gemtesa 75 mg QD Follow up with urology as scheduled (14) Insomnia: Code(s): G47.00 - Insomnia, unspecified Category: Medical Qualifiers: Insomnia type: primary Qualified Code(s): F51.01 - Primary insomnia Plan: Sleep hygiene reinforced She was on Trazodone in the past but it did not help; states that Mirtazapine 45 mg Q HS is helping but only minimally She is also now on Clonidine 0.1 mg Q HS PRN (15) Depression: Code(s): F32.9 - Major depressive disorder, single episode, unspecified Category: Medical Qualifiers: Depression Type: major depressive disorder Major depression recurrence: recurrent Active/Remission status: currently active Major depression episode severity: unspecified Qualified Code(s): F33.9 - Major depressive disorder, recurrent, unspecified Plan: Continue Bupropion ER 300 mg once a day, Paroxetine 40 mg QD and Mirtazapine 45 mg Q HS Follow-up with Psychiatry as scheduled (16) Smoker: Comment: LONG-TIME HISTORY OF SMOKING, SHE SAY IS THAT SHE HAS CHANTIX AND PLANS TO START USING IT. I TOLD HER THAT BECAUSE OF OR LIFELONG SMOKING AND NOW THAT SHE IS 53 YEARS OLD, SHE SHOULD JOIN THE ANNUAL LUNG SCREENING PROGRAM. SHE IS WILLING TO DO THAT. REFERRAL IS MADE. Code(s): F17.200 - Nicotine dependence, unspecified, uncomplicated Category: Social Hx Plan: Patient is counseled again on complete smoking cessation but she states that she is not able to quit (17) Morbid obesity with BMI of 45.0-49.9, adult: Code(s): E66.01 - Morbid (severe) obesity due to excess calories; Z68.42 - Body mass index [BMI] 45.0-49.9, adult Category: Medical Plan: Reinforced diet; exercise and weight loss are impractical due to her numerous physical issues and comorbidities Plan Follow up in 4 months Orders: Orders XR chest 2V 06/13/25 J98.8 - Other specified respiratory disorders Referrals Pulmonology Referral G47.33 - Obstructive sleep apnea (adult) (pediatric), J45.40 - Moderate persistent asthma, uncomplicated Podiatry Referral M21.41 - Flat foot [pes planus] (acquired), right foot, M21.42 - Flat foot [pes planus] (acquired), left foot Medications: New mupirocin 2% (Centany) 1 appl topical TID 22 grams 1RF nasal sores eeahminaymq-mgegpimyw-znoaqzcf 200-62.5-25 mcg (Trelegy Ellipta) 1 inh inhalation DAILY 60 ea 3RF COPD 30 days Discontinued fluticasone propionate 220 mcg/actuation (Flovent HFA) Discontinued Reason: Doctor's Order 1 puff inhalation BID 36 grams 2RF mirabegron ER Discontinued Reason: Patient no longer taking 25 mg PO DAILY 30 days 30 tabs 1RF N32.81 - Overactive bladder
--- OUTSIDE RECORDS SUMMARY | 2025-06-13 12:55 | XMS_ITS | Clinical Summary ---
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 Role Phone Leland Peterson MD Primary Care Provider [phone] Social History Tobacco Use Types Packs/Day Years Used Date Smoking Tobacco: Never Assessed Comments Unknown Sex and Gender Information Value Date Recorded Sex Assigned at Not on file Legal Sex Female 6:24 PM EST Gender Identity Not on file Sexual Orientation Not on file Plan of Treatment Health Maintenance Due Date Last Done Comments DTaP,Tdap,and Td Vaccines (1 - Tdap) 01/12/1991 Hepatitis A Vaccines (1 of 2 - Risk 2-dose series) 01/12/1991 Hepatitis B Vaccines (1 of 3 - 19+ 3-dose series) 01/12/1991 Pneumococcal Vaccine: 50+ Years (1 of 2 - PCV) 01/12/1991 Cervical Cancer Screening: Pap Smear 01/12/1993 Zoster Vaccines (1 of 2) 01/12/2022 Cholesterol Screening (Lipid Panel) 08/27/2022 Colorectal Cancer Screening: Colonoscopy 08/27/2022 HIV Screening 08/27/2022 Hepatitis C Screening 08/27/2022 Social Influencers of Health Screening 08/27/2022 Depression Screening 09/25/2024 COVID-19 Vaccine ( season) 2025 Influenza Vaccine (#1) 2025 Breast Cancer Screening 02/25/2026 02/26/20 24, 12/02/2022, 11/30/2021, Additional history exists HIB Vaccines Aged Out No longer eligi ble based on patient's age to complete this topic HPV Vaccines Aged Out No longer eligi ble based on patient's age to complete this topic IPV Vaccines Aged Out No longer eligi ble based on patient's age to complete this topic MMR Vaccines Aged Out No longer eligi ble based on patient's age to complete this topic Meningococcal ACWY Vaccine Aged Out N o longer eligible based on patient's age to complete this topic Meningococcal B Vaccine Aged Out No l onger eligible based on patient's age to complete this topic RSV Immunization Patients Under 20 months Aged Out No longer eligible based on patient's age to complete this topic Varicella Vaccines Aged Out No longer eligible based on patient's age to complete this topic Procedures Procedure Name Priority Date/Time Associated Diagnosis Comments [facility] SCREENING DIGITAL Routine 02/26/2024 4:03 PM EDT Encounter for screening mammogram for malignant neoplasm of breast from Last 3 Months or Most Recently Relevant to Health Maintenance Results * [facility] SCREENING DIGITAL (02/26/2024 4:03 PM EDT) Anatomical Region Laterality Modality Mammography 02/26/2024 3:22 PM EDT Narrative 02/26/2024 4:03 PM EDT [facility] Diagnostic Imaging Department [address] [place] [address] Patient: ASHLEY VALDERRAMA /Age/Sex: 1970 - 54 - F Unit#: [id number] Location/Status: [facility]/REG CLI Mnemonic[facility] Order[facility] Physician: PRESTON PIÑA MD Sam Screening Digital - 02/26/24 - [id number] Report Status:Signed EXAM: [facility] Screening Digital EXAM DATE AND TIME: 02/26/2024 3:38 PM HISTORY: Annual screening COMPARISON: Multiple exams dating back to 2019 TECHNIQUE: Bilateral digital breast tomosynthesis was performed in the CC and MLO projections. Computer aided detection with BioD[employer] 3D 3.1 was employed. TISSUE DENSITY: b. There are scattered areas of fibroglandular density. FINDINGS: No suspicious masses, grouped microcalcifications, or areas of architectural distortion are seen. The skin and vascularity are unremarkable. IMPRESSION: Stable mammographic appearance of the breasts. No evidence of malignancy is seen. A negative mammogram in the presence of a clinically suspicious palpable abnormality does not preclude the possibility of malignancy or alter the indications for biopsy. BI-RADS: Category 1: Negative RECOMMENDATION(S): 1: Routine screening mammogram BILATERAL in 1 year. 8301F, 7038F Dictating Physician: KARL MANDEL MD Electronically Signed by: KARL MANDEL MD Dic Date/Time: 02/26/24 1602 Sign date/Time: 02/26/24 1603 Procedure Note Karl Mandel MD - 07/10/2024 [facility] Diagnostic Imaging Department [address] [place] [id number] Patient: ASHLEY VALDERRAMAO.B./Age/Sex: 1970 - 54 - F Unit#: [id number] [facility] Mnem[facility]/Ordering Site: [facility] Ordering Physician: PRESTON PIÑA MD [facility] Screening Digital - 02/26/24 - [id number] Report Status:Signed EXAM: [facility] Screening Digital EXAM DATE AND TIME: 02/26/2024 3:38 PM HISTORY: Annual screening COMPARISON: Multiple exams dating back to 2019 TECHNIQUE: Bilateral digital breast tomosynthesis was performed in the CCand MLO projections. Computer aided detection with i[employer] - [employer] Platform 3D 3.1was employed. TISSUE DENSITY: b. There are scattered areas of fibroglandular density. FINDINGS: No suspicious masses, grouped microcalcifications, or areas ofarchitectural distortion are seen. The skin and vascularity are unremarkable. IMPRESSION: Stable mammographic appearance of the breasts. No evidence of malignancyis seen. A negative mammogram in the presence of a clinically suspicious palpable abnormality does not preclude the possibility of malignancy or alter the indications for biopsy. BI-RADS: Category 1: Negative RECOMMENDATION(S): 1: Routine screening mammogram BILATERAL in 1 year. 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
--- OUTSIDE RECORDS SUMMARY | 2025-06-13 12:55 | XMS_ITS | Clinical Summary ---
Author Organization [facility] Facility Address [address] [address] Care Team Providers Care Program Manager Environmental Planning Name Role Phone Unavailable Primary Care Provider Unavailabl e Allergies No known active allergies Medications valsartan (DIOVAN) 160 MG tablet 06/14/2021 Activ e simvastatin (ZOCOR) 20 MG tablet 05/20/2021 Active [facility] Senna 8.6 MG tablet 07/27/2021 Active oxybutynin XL (DITROPAN-XL) 10 MG 24 hr tablet 07/14/2021 Act nilo omeprazole (PriLOSEC) [address] capsule 07/24/2021 Active mirtazapine (REMERON) 30 MG tablet 05/23/2021 Active ibuprofen (ADVIL,MOTRIN) 800 MG tablet 07/19/2021 Active gabapentin (NEURONTIN) 800 MG tablet 07/04/2021 Active furosemide (LASIX) 20 MG tablet 06/17/2021 Active Flovent HFA 220 MCG/ACT inhaler 07/23/2021 Act nilo cyclobenzaprine (FLEXERIL) 10 MG tablet 07/19/2021 Active cyanocobalamin (VITAMIN B-12) 100 MCG tablet 07/27/2021 Active Active Problems Problem Noted Date Diagnosed Date Acute kidney failure 07/28/2021 Major depressive disorder 07/28/2021 Hypotensive episode 07/28/2021 Social History Tobacco Use Types Packs/Day Years Used Date Smoking Tobacco: Never Assessed Comments Unknown Sex and Gender Information Value Date Recorded Sex Assigned at Not on file Legal Sex Female 10:53 AM EDT Gender Identity Not on file Sexual Orientation Not on file Last Filed Vital Signs Vital Sign Reading Time Taken Comments Blood Pressure - - Pulse - - Temperature - - Respiratory Rate - - Oxygen Saturation - - Inhaled Oxygen Concentration - - Weight 113 kg (250 lb) 08/25/2021 4:29 PM EST Height - - Body Mass Index - - Plan of Treatment Health Maintenance Due Date Last Done Comments Breast Cancer Screening 1970 Hepatitis B Vaccine (1 of 3 - 19+ 3-dose series) 01/12 Colorectal Cancer Screening: Annual FOBT 01/12/2021 Colorectal Cancer Screening: Colonoscopy 01/12/2021 Colorectal Cancer Screening: Sigmoidoscopy 01/12/2021 Pneumococcal Vaccine: 50+ Years (1 of 1 - PCV) 022 Influenza Vaccine (#1) 2025 Insurance [place] [id number] [facility]
[2025-06-13 12:56] VITALS: BP 90/50; PULSE 101; RESP 18; TEMP 36.2; O2SAT 92; BMI 47.5
== END 2025-06-13 13:33 | disposition home or self-care (01) ==
PROVIDERS: PCP Internal Medicine; Visit Provider Internal Medicine
DX: E78.00 Pure hypercholesterolemia, unspecified (principal); I10 Essential (primary) hypertension; E66.01 Morbid (severe) obesity due to excess calories; Z68.42 Body mass index [BMI] 45.0-49.9, adult; J45.40 Moderate persistent asthma, uncomplicated; R73.01 Impaired fasting glucose; R79.89 Other specified abnormal findings of blood chemistry; S93.04XS Dislocation of right ankle joint, sequela; M51.360 Other intervertebral disc degeneration, lumbar region with discogenic back pain only; M15.9 Polyosteoarthritis, unspecified; K21.9 Gastro-esophageal reflux disease without esophagitis; E53.8 Deficiency of other specified B group vitamins

== ENCOUNTER → 2025-06-13 12:53 | Outpatient (BNVA) | payer OTHER, SELFPAY | PROVIDERS: PCP Internal Medicine; Visit Provider Internal Medicine | DX: I10 Essential (primary) hypertension (principal); E78.00 Pure hypercholesterolemia, unspecified; J45.40 Moderate persistent asthma, uncomplicated; R73.01 Impaired fasting glucose; R79.89 Other specified abnormal findings of blood chemistry; M51.360 Other intervertebral disc degeneration, lumbar region with discogenic back pain only; M15.9 Polyosteoarthritis, unspecified; K21.9 Gastro-esophageal reflux disease without esophagitis; E53.8 Deficiency of other specified B group vitamins; J30.9 Allergic rhinitis, unspecified; R60.0 Localized edema; R32 Unspecified urinary incontinence; F51.01 Primary insomnia; F33.9 Major depressive disorder, recurrent, unspecified; F17.210 Nicotine dependence, cigarettes, uncomplicated; E66.01 Morbid (severe) obesity due to excess calories; Z68.42 Body mass index [BMI] 45.0-49.9, adult | CPT/HCPCS: 96127; 99212 ==